=== PATIENT | male | born 1965 | race African-American/Black ===

== ENCOUNTER 2024-09-25 11:42 | Emergency (ER) | payer BC, SELFPAY ==
--- OUTSIDE RECORDS SUMMARY | 2024-09-25 11:44 | XMS_ITS | Encounter Summary ---
Author Organization [facility] [employer] [facility] Address [address] [place] [address] Phone Care Team Providers Care Brake Engineer Name Role Phone Lisa Alanis NP Primary Care Provi carl Chris Hernandez MD Primary Care Provider [phone] Clemente Harding MD Primary Care Provider + Svitlana Yee MD Primary Care Provider Encounter Details Date Type Department Care Team (Latest Contact Info) Description 03/08/2019 Orders Only [facility] Scanning, Provider Social History Tobacco Use Types Packs/Day Years Used Date Smoking Tobacco: Never Assessed Sex and Gender Information Value Date Recorded Sex Assigned at Not on file Legal Sex Male 10:55 PM IRONER OR PRESSER Gender Identity Male 12/19/2020 2:54 PM CDT Sexual Orientation Not on file documented as of this encounter Plan of Treatment Scheduled Procedures Name Priority Associated Diagnoses Date/Ti me COLONOSCOPY Colon cancer screening documented as of this encounter Procedures Procedure Name Priority Date/Time Associated Diagnosis Comments GI - RESULT 03/08/2019 documented in this encounter Results * GI - RESULT (03/08/2019) Anatomical Region Laterality Modality Other us Provider Scanning Final Result documented in this encounter Visit Diagnoses Not on filedocumented in this encounter Care Teams Brake Engineer Relationship Specialty Start Date End Date Lisa Alanis NP PCP - General Nurse Practitioner 02/15/19 04/13/20 Chris Hernandez MD [address] [place] [address] PCP - General 04/14/20 12/20/20 Clemente Harding MD [address] [place] [address] PCP - General Internal Medicine 12/21/20 01/23/23 Svitlana Yee MD [address] [place], [place] [id number] PCP - General Internal Medicine 01/24/23 documented as of this encounter
--- OUTSIDE RECORDS SUMMARY | 2024-09-25 11:44 | XMS_ITS | Clinical Summary ---
Author Organization [facility] Office [facility] Address [address] [place] [address] Care Team Providers Care Solid Waste Disposal Manager Name Role Phone Svitlana Yee MD Primary Care Provider Allergies Active Allergy Reactions Criticality Noted Date Comments Lisinopril Angioedema,Other (Se e comments),Swollen tongue High 04/14/2020 Swelling Lisinopril-Hydrochloro thiazide Angioedema High 08/07/2020 Mouth swelling, coughing, Medications [id number] [id number] in (Centrum Silver Men) 300-600-300 mcg tablet qd Active inhalational spacing device (Aerochamber Plus Flow-Vu) spacer Inhale 1 Device as needed (breathing treatment) 1 each 1 Active aspirin 81 mg enteric coated tablet Take 1 tablet (81 mg total) by mouth daily 90 tablet 3 1 Active Additional Information Patient not taking.Reported on 03/12/2024 cholecalcifero l (VITAMIN D-3) 5,000 unit capsule Take 1 capsule (5,000 Units total) by mouth daily 90 capsule 3 1 Active fexofenadine (ABA) 180 mg tablet Take 1 tablet (180 mg total) by mouth daily as needed (allergies) 90 tablet 4 3 Active Additional Information Patient not taking.Reported on 03/12/2024 albuterol HFA (ProAir HFA) 90 mcg/actuation inhaler Inhale 2 puffs every 4 (four) hours as needed for wheezing or shortness of breath 8.5 g 1 4 Active fluticasone-um eclidin-vilant er (Trelegy Ellipta) 100-62.5-25 mcg inhaler Inhale 1 puff daily 30 each 1 4 03/29/20 25 Active semaglutide (RYBELSUS) 3 mg tablet Take 1 tablet (3 mg total) by mouth facility planner before breakfast 90 tablet 1 4 Active amLODIPine (NORVASC) 10 mg tablet Take 1 tablet (10 mg total) by mouth daily 90 tablet 5 Active metFORMIN (GLUCOPHAGE) 1,000 mg tablet Take 1 tablet (1,000 mg total) by mouth 2 (two) times a day with meals 180 tablet 5 Active sildenafiL (VIAGRA) 100 mg tablet Take 1 tablet (100 mg total) by mouth as needed for erectile dysfunction (Daily for erectile dysfuction) 30 tablet 2 5 Active rosuvastatin (CRESTOR) 10 mg tablet Take 1 tablet (10 mg total) by mouth daily 90 tablet 1 5 Active rosuvastatin (CRESTOR) 10 mg tablet Take 1 tablet (10 mg total) by mouth daily 90 tablet 2 5 09/01/19 25 Discontin ued(Reord er) metFORMIN (GLUCOPHAGE) 1,000 mg tablet Take 1 tablet (1,000 mg total) by mouth 2 (two) times a day with meals 180 tablet 5 09/01/19 25 Discontin ued(Reord er) amLODIPine (NORVASC) 10 mg tablet Take 1 tablet (10 mg total) by mouth daily 90 tablet 5 09/01/19 25 Discontin ued(Reord er) rosuvastatin (CRESTOR) 10 mg tablet Take 1 tablet (10 mg total) by mouth daily 90 tablet 1 5 09/01/19 25 Discontin ued(Reord er) Active Problems Problem Noted Date Diagnosed Date Acute dehydration 12/04/2023 Microscopic hematuria 09/25/2022 Overview (09/25/2022): Repeat UA at next visit, if RBCs persist then plan for imaging and Urology referral for consideration of cystoscopy. Nocturia 09/09/2022 Overview (09/09/2022): Appears most consistent with LUTS. We discussed pathophysiology of BPH and reviewed diagrams explaining it. PSA WNL. Counseled on lifestyle (decreasing nocturnal fluids) and starting tamsulosin. He wants to try both treatments. Seasonal allergies 03/11/2022 Overview (03/11/2022): Incomplete relief with OTC medications including intranasal spray and PO options. Using chlorpheniramine from employer. Referral to Allergy to identify source and possible desensitization therapy. Pre-op evaluation 12/19/2021 Overview (03/11/2022): For right knee arthroscopic repair meniscus. RCRI score zero, correlating with predicted perioperative 30-day risk of , cardiac arrest, or myocardial infarction of 3.9%. Discussed this with patient today, 03/11/2022. and he demonstrated understanding. No risk factors to further optimize to lower this risk. At this time benefit of surgery is likely greater than risks. Instructed to hold home metformin the morning of surgery. Right leg swelling 09/17/2021 Overview (09/17/2021): No trauma, travel, or stasis that increases risk for DVT. No prior VTE. Suspect this is actually hernández's cyst or related to knee rather than vascular issues. US to evaluate. Mixed diabetic hyperlipidemi a associated with type 2 diabetes mellitus 09/14/2021 Overview (12/19/2021): Continue rosuvastatin 10 Tubular adenoma of colon 04/16/2021 Overview (12/19/2021): Records request from Dr.Vasantha Boudreaux in [place], [place]; if Caleb needs another colonoscopy he is okay with getting it CKD stage G2/A2, GFR 60-89 a nd albumin creatinine ratio 30-299 mg/g 04/14/2021 Overview (04/16/2021): Counseling on ARB vs. SGLT2 inhibitor, ongoing glycemic control Erectile dysfunction 12/21/2020 Overview (03/11/2022): Has AM erections. Also has DM and HLD. Suspect mix of vascular disease and psychogenic. Incomplete benefit with sildenafil or tadalafil and has side effects. Urology referral for evaluation for intracavernosal injections. Vasovagal syncope 04/13/2020 COVID-19 04/13/2020 Vitamin B12 deficiency (non anemic) 12/02/2018 Overview (12/04/2023): Replete Diabetes mellitus 01/23/2017 Overview (12/04/2023): A1c above goal at 8.0%. Managed with lifestyle, metformin 1000 BID. Previously thought SGLT2 increased urination however he continues to have this symptom off the medication. We spent extensive time discussing mechanism of GLP1 and GIP. He understands most likely side effect is nausea at approximately 20%. Other GI side effects including vomiting, diarrhea, constipation, pancreatitis can occur. At this time he would like to work on lifestyle more instead of adding GLP/GIP however he feels more comfortable with idea of these medications now. - foot exam WNL Dec 2021 - normal urine albumin Dec 2021; prior angioedema with lisinopril - follows with Ophtho, last exam Dec 2021 Hypertensive disorder 01/23/2017 Overview (12/04/2023): At goal. Continue amlodipine. Phimosis 10/07/2011 Overview (08/15/2017): Description: s/p circumcision 09/02/2011 Resolved Problems Problem Noted Date Diagnosed Date Resolved Date Transaminitis 12/21/2020 12/19/2021 Overview (12/21/2020): Now resolved but seen on prior. HCV and HBV negative. Minimal EtOH. Suspect VELASQUEZ with DM and hyperlipidemia. Plan for lifestyle modification and RUQ US in future Immunizations Immunization Administration Dates Next Due Influenza, Trivalent, IM (MDV) 02/02/2014 Pneumococcal Conjugate Pcv20 03/11/2022 Pneumococcal Polysaccharide PPV23 04/18/2020 Tdap 09/09/2022 ZOSTER Recombinant 04/18/2020 Surgical History Surgery Date Site/Laterality Comments SHOULDER SURGERY Shoulder Surgery - (Added by TW Conv) CIRCUMCISION, PRIMARY Circumcision No Clamp/Device/Dorsal Slit Older Than 28 Days - 09/02/2011 (Added by TW Conv) SHOULDER SURGERY Bilateral WRIST SURGERY Bilateral THUMB SURGERY Left ELBOW SURGERY Bilateral Medical History Medical History Date Comments Personal history of other en docrine, nutritional and metabolic disease History of diabetes mellitus - (Added by TW Conv) Personal history of other di seases of the circulatory system History of hypertension - (A dded by TW Conv) Encounter for counseling Encount er for consultation - for circumcision (Added by TW Conv) Family History Medical History Relation Name Comments Cancer Father Diabetes Father Heart attack Maternal Grandmother Relation Name Status Comments Father Maternal Grandmother Social History Tobacco Use Types Packs/Day Years Used Date Smoking Tobacco: Never Smokeless Tobacco: Never Tobacco Cessation:Counseling Given: Not Answered AUDIT-C Answer Date Recorded Q1: How often do you have a drink containing alc ohol? Monthly or less 12/21/2020 Average Number of Drinks Not on file 021 Frequency of Binge Drinking Not on file 12/03 PHQ-2 Answer Date Recorded PHQ-2 Total Score (If total score is 3 or more points, staff should administer the PHQ-9) 0 03/13/2023 Sex and Gender Information Value Date Recorded Sex Assigned at Not on file Legal Sex Male 10:55 PM SNOWBOARD DESIGNER Gender Identity Male 12/19/2020 2:54 PM CDT Sexual Orientation Not on file Obstetrics History Last Filed Vital Signs Vital Sign Reading Time Taken Comments Blood Pressure 131/84 03/12/2024 10:44 AM SNOWBOARD DESIGNER Pulse 86 03/12/2024 10:44 AM SNOWBOARD DESIGNER Temperature 36.7 C (98 F) 03/12/2024 10:44 AM SNOWBOARD DESIGNER Respiratory Rate - - Oxygen Saturation 97% 03/13/2023 10:54 AM SNOWBOARD DESIGNER Inhaled Oxygen Concentration - - Weight 108 kg (238 lb) 03/12/2024 10:44 AM SNOWBOARD DESIGNER Height 186.7 cm (6' 1.5 ) 03/12/2024 10:44 AM CS T Body Mass Index 30.97 03/12/2024 10:44 AM SNOWBOARD DESIGNER Plan of Treatment Scheduled Procedures Name Priority Associated Diagnoses Date/Ti me COLONOSCOPY Colon cancer screening Health Maintenance Due Date Last Done Comments Zoster Vaccine (2 of 2) 06/13/2020 04/18/2020 Foot Exam 12/19/2022 12/19/2021, 12/21/2020 Regular Well Visit/Exam 18-64 03/11/2023 03/11/2022, 12/21/2020 Colon Cancer Screening-Colonoscopy 03/08/2024 Albumin Creatinine Ratio, Urine 03/13/2024 03/13/2023, 12/19/2021, 12/21/2020 Depression Screening 03/13/2024 03/13/2023, 04/16/20 21 Dilated Eye Exam 06/05/2024 06/05/2023, 05/2021, 05/05/2020 Hemoglobin A1C 09/09/2024 03/12/2024, 0805/2023, 03/13/2023, Additional history exists Influenza Vaccine (Season Ended) 2025 03/13/20 23, 02/02/2014 Lipid Panel 03/12/2025 03/12/2024, 110 01/2023, 12/19/2021, Additional history exists eGFR 03/12/2025 03/12/2024, 0805/2023, 03/13/2023, Additional history exists Prostate Cancer Screening-PSA 03/12/2026 03/12/2024, 03/11/2022 DTaP/Tdap/Td Vaccine (2 - Td or Tdap) 09/09/2032 09/09/2022 Hepatitis C Screening Completed 12/21/2020 Pneumococcal vaccine <65 Completed 03/11/2022, 04/04 Hepatitis B Screening Completed 12/04/2023 Procedures Procedure Name Priority Date/Time Associated Diagnosis Comments EGFR Routine 03/12/2024 11:33 AM SNOWBOARD DESIGNER Controlled diabetes mellitus type 2 with complications, unspecified whether termite control technician insulin use (HCC) HEMOGLOBIN A1C Routine 03/12/2024 11:33 AM SNOWBOARD DESIGNER Controlled diabetes mellitus type 2 with complications, unspecified whether nursing home insulin use (HCC) LIPID PANEL Routine 03/12/2024 11:33 AM SNOWBOARD DESIGNER Controlled diabetes mellitus type 2 with complications, unspecified whether termite control technician insulin use (HCC) PSA SCREEN Routine 03/12/2024 11:33 AM SNOWBOARD DESIGNER Health care maintenance ALBUMIN CREATININE RATIO, URINE Routine 03/13/2023 12:20 PM SNOWBOARD DESIGNER Hypertension associated with diabetes (HCC) HEPATITIS C ANTIBODY Routine 12/21/2020 2:15 PM CDT Need for hepatitis C screening test from Last 3 Months or Most Recently Relevant to Health Maintenance Results * eGFR (03/12/2024 11:33 AM SNOWBOARD DESIGNER) eGFR >90 >=60 mL/min/1. 73 m2 Comment: Interpretive Data Reference Interval Normal >/= 90 mL/min/1.73m2 Mildly decreased* 60 - 89 mL/min/1.73m2 Mildly to moderately decreased 45 - 59 mL/min/1.73m2 Moderately to severely decreased 30 - 44 mL/min/1.73m2 Severely decreased 15 - 29 mL/min/1.73m2 Kidney Failure < 15 mL/min/1.73m2 *Relative to young adult level Estimated glomerular filtration rate is determined by the 2020 CKD-EPI equation recommended by the National Kidney Foundation (A Unifying Approach to GFR Estimation: Recommendations of the NKF-ASK Task Force on Reassessing the Inclusion of Race in Diagnosing Kidney Disease, JASN 202). The CKD-EPI equation should not be used for patients with unstable renal function and has not been validated in children and those over 70. Current interpretive data was last reviewed 2021. Blood 03/12/2024 11:3 3 AM SNOWBOARD DESIGNER 03/12/2024 11:53 AM SNOWBOARD DESIGNER us Svitlana Yee MD LAB BLOOD ORDERABLES F inal Result [facility] [place] [address] * PSA screen (03/12/2024 11:33 AM SNOWBOARD DESIGNER) PSA-Total 0.44 <=3.90 ng/mL Comment: Interpretive Data AGE SEX REFERENCE INTERVAL 0 minutes-150 years Female None 0 minutes-49 years Male None 50-59 years Male 0-3.90 60-69 years Male 0-5.40 70-79 years Male 0-6.20 80-150 years Male 0-6.20 The Jered PSA Total assay procedure was used. Results from different manufacturers or methods may not be comparable. Serial testing should be performed using the same method. Current interpretive data last revised 21. Blood 03/12/2024 11:3 3 AM SNOWBOARD DESIGNER 03/12/2024 11:53 AM SNOWBOARD DESIGNER Svitlana Yee MD LAB BLOOD ORDERABLES F inal Result Performing Organization Address [facility] Co de Phone Number [facility] [place] [address] * (ABNORMAL) Hemoglobin A1c (03/12/2024 11:33 AM SNOWBOARD DESIGNER) [facility] Hgb A1C 8.4(H) 4.0 - 5.6 % Estimated Average Glucose 194 mg/dL [facility] Comment: The ADA recommends reporting an estimated Average Glucose (eAG) with all Hemoglobin A1c results using the equation derived from a study of 507 normal and diabetic adults. Minority populations were underrepresented and children were not included. (Diabetes Care 2020; 43(S1): S66-S76). The eAG is not equivalent to a fasting glucose. Blood 03/12/2024 11:3 3 AM SNOWBOARD DESIGNER 03/12/2024 11:54 AM SNOWBOARD DESIGNER Svitlana Yee MD LAB BLOOD ORDERABLES F inal Result Performing Organization Address City/[facility]/ZIP Co de Phone Number [facility] [place] [address] * Lipid panel (03/12/2024 11:33 AM SNOWBOARD DESIGNER) Pathologist [facility] Cholesterol 127 30 - 199 mg/dL Comment: Interpretive Data Ages < or = 19 years Acceptable: <170 mg/dL Borderline high: 170-199 mg/dL High: >or= 200 mg/dL Ages > or = 20 years Desirable: <200 mg/dL Borderline high: 200-239 mg/dL High: >or= 240 mg/dL Literature References: 1. Expert Panel on Integrated Guidelines for Cardiovascular Health and Risk Reduction in Children and Adolescents. Pediatrics 2011;128:S213 2. NCEP Expert Panel. Circulation 2004;110:227 Current Interpretive Data was last revised on 2017. Triglycerides 76 <=149 mg/dL [facility] Comment: Interpretive Data Ages < or = 9 years Acceptable: <75 mg/dL Borderline high: 75-99 mg/dL High: >or= 100 mg/dL Ages 10 to 20 years Acceptable: <90 mg/dL Borderline high: 90-129 mg/dL High: >or= 130 mg/dL Ages > or = 20 years Desirable: <150 mg/dL Borderline high: 150-199 mg/dL High: 200-499 mg/dL Very high: >or= 499 mg/dL Literature References: 1. Expert Panel on Integrated Guidelines for Cardiovascular Health and Risk Reduction in Children and Adolescents. Pediatrics 2011;128:S213 2. NCEP Expert Panel. Circulation 2004;110:227 Current Interpretive Data was last revised on 2017. HDL 40 >=40 mg/dL [facility] Comment: Interpretive Data Ages < or = 19 years Acceptable: >45 mg/dL Borderline low: 40-45 mg/dL Low: <40 mg/dL Ages > or = 20 years Desirable: >or= 60 mg/dL Low: <40 mg/dL Literature References: 1. Expert Panel on Integrated Guidelines for Cardiovascular Health and Risk Reduction in Children and Adolescents. Pediatrics 2011;128:S213 2. NCEP Expert Panel. Circulation 2004;110:227 Current Interpretive Data was last revised on 2017. LDL, calculated 72 <=129 mg/dL [facility] Comment: Interpretive Data Ages < or = 19 years Acceptable: <110 mg/dL Borderline high: 110-129 mg/dL High: >or= 130 mg/dL Ages > or = 20 years Optimal: <100 mg/dL Near optimal: 100-129 mg/dL Borderline high: 130-159 mg/dL High: >160 mg/dL Calculated using the Buddy LDL-C estimating equation. This equation was implemented on 2023. Prior to this date LDL-C was estimated using the Friedewald equation. Literature References: 1. Expert Panel on Integrated Guidelines for Cardiovascular Health and Risk Reduction in Children and Adolescents. Pediatrics 2011;128:S213 2. NCEP Expert Panel. Circulation 2004;110:227 3. Buddy Solano et al. BRIDGETTE Cardiol. 2019September 02;5(5):540-548. doi: 10.1001/jamacardio.2020.0013 Current Interpretive Data was last revised on 2023. Non-HDL Cholesterol 87 mg/dL [facility] Comment: Interpretive Data Ages < or = 19 years Acceptable: <120 mg/dL Borderline high: 120-144 mg/dL High: >145 mg/dL Ages > or = 20 years When triglycerides are >200 mg/dL, Non-HDL cholesterol is a secondary target of therapy with treatment goals that are 30 mg/dL greater than the LDL cholesterol target. Literature References: 1. Expert Panel on Integrated Guidelines for Cardiovascular Health and Risk Reduction in Children and Adolescents. Pediatrics 2011;128:S213 2. NCEP Expert Panel. Circulation 2004;110:227 Current Interpretive Data was last revised on 2017. Chol/HDL ratio 3 [facility] Blood 03/12/2024 11:3 3 AM SNOWBOARD DESIGNER 03/12/2024 11:53 AM SNOWBOARD DESIGNER Svitlana Yee MD LAB BLOOD ORDERABLES F inal Result [facility] [place] [address] * (ABNORMAL) Albumin Creatinine Ratio, Urine (03/13/2023 12:20 PM SNOWBOARD DESIGNER) Albumin Ur 856.0 mg/L [facility] Comment: Interpretive Data No reference range established. Current interpretive data was last revised 2018. Creatinine Ur 307.3 mg/dL [facility] Comment: Interpretive Data No reference range established. Current interpretive data was last revised 2018. Albumin Creatinine Ratio, Ur 279(H) 1 - 29 mg/g [facility] Urine 03/13/2023 12:2 0 PM SNOWBOARD DESIGNER 03/13/2023 12:56 PM SNOWBOARD DESIGNER Svitlana Yee MD LAB URINE ORDERABLES F inal Result Performing Organization Address City/[facility]/ZIP Co de Phone Number [facility] [place] [address] * Hepatitis C antibody (12/21/2020 2:15 PM CDT) Hep C Ab Nonreactive Nonreactive [facility] Comment: Interpretive Data Nonreactive: Antibodies to HCV not detected. Does NOT exclude the possibility of recent exposure to HCV. Equivocal: Equivocal for HCV antibodies. Supplemental molecular testing will be automatically performed to determine infection status in accordance with current CDC screening recommendations. Reactive: Positive for HCV antibodies. This may represent current or past HCV infection. Supplemental molecular testing will be automatically performed to determine current infection status in accordance with current CDC screening recommendations. Interpretive data was last revised on 2019. Testing performed by: [facility], [facility] [facility], [place]., [address] Blood 12/21/2020 2:15 PM CDT 12/21/2020 6:04 PM CDT Clemente Harding MD LAB MICROBIOLOGY - GENER AL ORDERABLES Final Result Performing Organization Address City/[facility] Co de Phone Number [facility] [address] [facility]. [place] [address] from Last 3 Months or Most Recently Relevant to Health Maintenance Insurance [employer] [facility] BLUE ACCESS CHOICE [place] BLUE [place]ESS CHOICE [place] Care Teams Solid Waste Disposal Manager Relationship Specialty Start Date End Date Svitlana Yee MD PCP - General Internal Medicine 01/24/23
--- OUTSIDE RECORDS SUMMARY | 2024-09-25 11:44 | XMS_ITS | Referral Summary ---
Author Organization [facility] at the [facility] Address [address] [place] [address] Care Team Providers Care Manager Ecommerce Name Role Phone Svitlana Yee MD Primary Care Provider Allergies Active Allergy Reactions Criticality Noted Date Comments Lisinopril Angioedema,Other (Se e comments),Swollen tongue High 04/14/2020 Swelling Lisinopril-Hydrochloro thiazide Angioedema High 08/07/2020 Mouth swelling, coughing, Medications [id number] A-ufjsavz-llvy in (Centrum Silver Men) 300-600-300 mcg tablet [...] 1 tablet (3 mg total) by mouth loan administrator before breakfast 90 tablet 1 4 Active [...] (12/19/2021): Records request from Dr.Vasantha Boudreaux in [place], [place]; if Caleb needs another colonoscopy he [...] PPV23 04/18/2020 Tdap 09/09/2022 ZOSTER Recombinant 04/18/2020 Social History Tobacco Use Types Packs/Day Years [...] on file Legal Sex Male 10:55 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 Gender Identity Male 12/19/2020 2:54 PM CDT Sexual Orientation Not on file Last Filed Vital Signs Vital Sign Reading Time Taken Comments Blood Pressure 131/84 03/12/2024 10:44 AM CAMPUS RECEPTIONIST Pulse 86 03/12/2024 10:44 AM CAMPUS RECEPTIONIST Temperature 36.7 C (98 F) 03/12/2024 10:44 AM CAMPUS RECEPTIONIST Respiratory Rate - - Oxygen Saturation 97% 03/13/2023 10:54 AM CAMPUS RECEPTIONIST Inhaled Oxygen Concentration - - Weight 108 kg (238 lb) 03/12/2024 10:44 AM CAMPUS RECEPTIONIST Height 186.7 cm (6' 1.5 ) 03/12/2024 10:44 AM CS T Body Mass Index 30.97 03/12/2024 10:44 AM CAMPUS RECEPTIONIST Plan of Treatment Scheduled Procedures Name Priority Associated Diagnoses Date/Ti me COLONOSCOPY Colon cancer screening Procedures Procedure Name Priority Date/Time Associated Diagnosis Comments EGFR Routine 03/12/2024 11:33 AM CAMPUS RECEPTIONIST Controlled diabetes mellitus type 2 with complications, unspecified whether group home insulin use (HCC) HEMOGLOBIN A1C Routine 03/12/2024 11:33 AM CAMPUS RECEPTIONIST Controlled diabetes mellitus type 2 with complications, unspecified whether group home insulin use (HCC) LIPID PANEL Routine 03/12/2024 11:33 AM CAMPUS RECEPTIONIST Controlled diabetes mellitus type 2 with complications, unspecified whether continuous churn buttermaker insulin use (HCC) PSA SCREEN Routine 03/12/2024 11:33 AM CAMPUS RECEPTIONIST Health care maintenance ALBUMIN CREATININE RATIO, URINE Routine 03/13/2023 12:20 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 Hypertension associated with diabetes (HCC) HEPATITIS C ANTIBODY Routine 12/21/2020 2:15 PM CDT Need for hepatitis C screening test from Last 3 Months or Most Recently Relevant to Health Maintenance Results * eGFR (03/12/2024 11:33 AM CAMPUS RECEPTIONIST) eGFR >90 >=60 mL/min/1. 73 m2 Comment: [...] of Race in Diagnosing Kidney Disease, JASN 2020). The CKD-EPI equation should not be used for patients with unstable renal function and has not been validated in children and those over 70. Current interpretive data was last reviewed 2021. Blood 03/12/2024 11:3 3 AM CAMPUS RECEPTIONIST 03/12/2024 11:53 AM CAMPUS RECEPTIONIST us Svitlana Yee MD LAB BLOOD ORDERABLES F inal Result [facility] [place] [address] * PSA screen (03/12/2024 11:33 AM CAMPUS RECEPTIONIST) PSA-Total 0.44 <=3.90 ng/mL Comment: Interpretive Data [...] revised 21. Blood 03/12/2024 11:3 3 AM CAMPUS RECEPTIONIST 03/12/2024 11:53 AM CAMPUS RECEPTIONIST Svitlana Yee MD LAB BLOOD ORDERABLES F inal Result Performing Organization Address [facility] de Phone Number [facility] [place] [address] * (ABNORMAL) Hemoglobin A1c (03/12/2024 11:33 AM CAMPUS RECEPTIONIST) Hgb A1C 8.4(H) 4.0 - 5.6 % Estimated Average Glucose 194 mg/dL [facility] Comment: The ADA recommends reporting an estimated Average Glucose (eAG) with all Hemoglobin A1c results using the equation derived from a study of 507 normal and diabetic adults. Minority populations were underrepresented and children were not included. (Diabetes Care 2020; 43(S1): S66-S76). The eAG is not equivalent to a fasting glucose. Blood 03/12/2024 11:3 3 AM CAMPUS RECEPTIONIST 03/12/2024 11:54 AM CAMPUS RECEPTIONIST Svitlana Yee MD LAB BLOOD ORDERABLES F inal Result Performing Organization Address [facility] de Phone Number [facility] [place] [address] * Lipid panel (03/12/2024 11:33 AM CAMPUS RECEPTIONIST) Cholesterol 127 30 - 199 mg/dL Comment: [...] revised on 2017. Triglycerides 76 <=149 mg/dL [facility] Comment: Interpretive Data Ages < or [...] revised on 2017. HDL 40 >=40 mg/dL [facility] Comment: Interpretive Data Ages < or [...] on 2017. LDL, calculated 72 <=129 mg/dL [facility] Comment: Interpretive Data Ages < or = 19 years Acceptable: <110 mg/dL Borderline high: 110-129 mg/dL High: >or= 130 mg/dL Ages > or = 20 years Optimal: <100 mg/dL Near optimal: 100-129 mg/dL Borderline high: 130-159 mg/dL High: >160 mg/dL Calculated using the Goodwin LDL-C estimating equation. This equation was implemented on 2023. Prior to this date LDL-C was estimated using the Friedewald equation. Literature References: 1. Expert Panel on Integrated Guidelines for Cardiovascular Health and Risk Reduction in Children and Adolescents. Pediatrics 2011;128:S213 2. NCEP Expert Panel. Circulation 2004;110:227 3. Buddy Solano et al. BRIDGTETE Cardiol. 2019September 02;5(5):540-548. doi: 10.1001/jamacardio.2020.0013 Current Interpretive Data was last revised on 2023. Non-HDL Cholesterol 87 mg/dL [facility] Comment: Interpretive Data Ages < or [...] last revised on 2017. Chol/HDL ratio 3 [facility] Blood 03/12/2024 11:3 3 AM CAMPUS RECEPTIONIST 03/12/2024 11:53 AM CAMPUS RECEPTIONIST us Svitlana Yee MD LAB BLOOD ORDERABLES F inal Result [facility] Department [place] [address] * (ABNORMAL) Albumin Creatinine Ratio, Urine (03/13/2023 12:20 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) Albumin Ur 856.0 mg/L [facility] Comment: Interpretive Data No reference range established. Current interpretive data was last revised 2018. Creatinine Ur 307.3 mg/dL [facility] Comment: Interpretive Data No reference range established. Current interpretive data was last revised 2018. Albumin Creatinine Ratio, Ur 279(H) 1 - 29 mg/g [facility] Urine 03/13/2023 12:2 0 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 03/13/2023 12:56 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 Svitlana Yee MD LAB URINE ORDERABLES F inal Result [facility] Department [place] [address] * Hepatitis C antibody (12/21/2020 2:15 PM CDT) Hep C Ab Nonreactive Nonreactive [facility] Comment: Interpretive Data Nonreactive: Antibodies to HCV [...] last revised on 2019. Testing performed by: [facility], [address] [place] [address]., [id number] Blood 12/21/2020 2:15 PM CDT 12/21/2020 6:04 PM CDT Clemente Harding MD LAB MICROBIOLOGY - GENER AL ORDERABLES Final Result Performing Organization Address City/[facility] Co de Phone Number [facility] [address] [facility]. Department [place] [address] from Last 3 Months or Most Recently Relevant to Health Maintenance Insurance [employer] [facility] [employer] ACCESS CHOICE [place] [employer] [place] Care Teams Manager Ecommerce Relationship Specialty Start Date End Date Svitlana Yee MD PCP - General Internal Medicine 01/24/23
--- OUTSIDE RECORDS SUMMARY | 2024-09-25 11:44 | XMS_ITS | Clinical Summary ---
Author Organization [facility] Address [address] [place] [address] Care Team Providers Care Teletypesetter Monitor Name Role Phone Chris Hernandez MD Primary Care Provider [phone] Source Comments [facility],non-owned Affiliates and Associated Physician Practices is amultiple site organization consisting of ambulatory clinics and hospital sitesin [place], [place], [place] and [place]. This disclosure is being madepursuant to the Care Everywhere program and may not contain all information available regarding this patient. Last updated 18.[facility] Allergies Active Allergy Reactions Criticality Noted Date Comments Lisinopril-Hydrochlorothi azide Angioedema High 08/07/2020 Mouth swelling, coughing, Medications * Be aware that medications may not be up to date on this document. Alwaysverify current medications with the patient. traMADol (ULTRAM) 50 MG tablet Take 50 mg by mouth every 6 hours as needed 02/02/20 20 Active tadalafil (CIALIS) 20 MG tablet tadalafil 20 mg tablet TAKE 1 TABLET BY MOUTH ONCE DAILY NEEDED Active sildenafil (REVATIO) 20 MG tablet sildenafil (pulmonary hypertension) 20 mg tablet TK 2-3 TS ONCE D PRN ONLY Active rosuvastatin (CRESTOR) 10 MG tablet 07/21/19 21 Active pravastatin (PRAVACHOL) 40 MG tablet 04/24/20 20 Active oseltamivir (TAMIFLU) 75 MG capsule oseltamivir 75 mg capsule Active metFORMIN ER 24hr (GLUCOPHAGE XR) 500 MG tablet 09/10/19 20 Active HYDROcodone-barney taminophen (NORCO) 5-325 MG tablet Take 1 tablet by mouth every 6 hours as needed pain 12/06/19 20 Active glyBURIDE (DIABETA; MICRONASE) 5 MG tablet Take 5 mg by mouth once daily 02/07/20 20 Active fluconazole (DIFLUCAN) 200 MG tablet 12/06/19 20 Active XIGDUO XR 5-1000 MG tablet 10/17/19 20 Active vitamin D3 (CHOLECALCIFERO L) 125 MCG (5000 UT) capsule cholecalciferol (vitamin D3) 125 mcg (5,000 unit) capsule Take 1 capsule(s) every day by oral route. Active azithromycin (ZITHROMAX) 250 MG tablet TAKE 2 TABLETS BY MOUTH ON DAY 1 AND THEN TAKE 1 TABLET BY MOUTH ONCE A DAY ON DAY 2 THROUGH DAY 5 08/04/19 21 Active ASPIRIN LOW DOSE 81 MG tablet 07/21/19 21 Active amLODIPine (NORVASC) 5 MG tablet 12/07/19 20 Active albuterol HFA (PROVENTIL;VENT TATUM;PROAIR) 108 (90 Base) MCG/ACT inhaler albuterol sulfate HFA 90 mcg/actuation aerosol inhaler 2 puffs up to 4 times a days as needed only; Must go to the Emergency Room if no relief after the 4th treatment. Active cetirizine (ZYRTEC) 10 MG tabletIndicatio ns:Sarcoidosis, Persistent asthma without complication, unspecified asthma severity (HCC),Seasonal allergic rhinitis, unspecified trigger Take 1 (one) tablet by mouth once daily 90 tablet 4 08/08/19 21 Active fluticasone propionate (FLONASE) 50 MCG/ACT nasal sprayIndication s:Sarcoidosis,P ersistent asthma without complication, unspecified asthma severity (HCC),Seasonal allergic rhinitis, unspecified trigger [place] 2 (two) sprays into each nostril once daily 16 g 08/08/19 21 Active fluticasone-zahra meterol hfa (ADVAIR HFA) 230-21 MCG/ACTIndicati ons:Sarcoidosis ,Persistent asthma without complication, unspecified asthma severity (HCC) Inhale 2 (two) puffs by mouth 2 times daily 3 Inhaler 3 08/08/19 21 Active Social History Tobacco Use Types Packs/Day Years Used Date Smoking Tobacco: Never Smokeless Tobacco: Never Sex and Gender Information Value Date Recorded Sex Assigned at Not on file 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 Gender Identity Not on file Sexual Orientation Not on file Last Filed Vital Signs Vital Sign Reading Time Taken Comments Blood Pressure 130/87 08/07/2020 2:34 PM CDT Pulse 104 08/07/2020 2:34 PM CDT Temperature 36 C (96.8 F) 08/07/2020 2:34 PM CDT Respiratory Rate 16 08/07/2020 2:34 PM CDT Oxygen Saturation 93% 08/07/2020 2:34 PM CDT Inhaled Oxygen Concentration - - Weight 109.1 kg (240 lb 8 oz) 08/07/2020 2:34 PM CDT Height 186.7 cm (6' 1.5 ) 08/07/2020 2:34 PM CDT Body Mass Index 31.3 08/07/2020 2:34 PM CDT Plan of Treatment Health Maintenance Due Date Last Done Comments COLOGUARD (AGES 45-75) - COL ON CA SCREENING 1967 COLON MONITORING 1967 COLONOSCOPY - COLON CA SCREENING 1967 CT COLONOGRAPHY - COLON CA SCREENING 1967 Colorectal Cancer Screening 1967 FIT - COLON CA SCREENING 1967 FLEX SIG - COLON CA SCREENING 1967 HIV SCREENING 1982 HEPATITIS C SCREENING 04/10/1985 DTAP/TDAP/TD VACCINES (1 - Tdap) 1986 HEPATITIS B VACCINE (1 of 3 - 19+ 3-dose series) 1986 PNEUMOCOCCAL VACCINE 50+ (1 of 1 - PCV) 2017 ZOSTER VACCINE (1 of 2) 2017 SCREENING FOR DIABETES 08/07/2020 9, 12/29/2008 COVID-19 VACCINE (1 - 2023-2 5 season) 2024 DEPRESSION SCREENING 05/05/2024 INFLUENZA VACCINE (Season Ended) 2025 HIB VACCINE Aged Out No longer eligi ble based on patient's age to complete this topic HPV VACCINE Aged Out No longer eligi ble based on patient's age to complete this topic MENINGOCOCCAL (Group B) VACCINE SHARED DECISION-MAKING Aged Out No longer eligible based on patient's age to complete this topic MENINGOCOCCAL GROUPS A/C/Y/W VACCINE Aged Out No longer eligible b ased on patient's age to complete this topic Procedures Procedure Name Priority Date/Time Associated Diagnosis Comments COMPREHENSIVE METABOLIC PANEL Routine 12/29/2008 12:55 PM CDT Mixed Hyperlipidemia from Last 3 Months or Most Recently Relevant to Health Maintenance Results * (ABNORMAL) COMPREHENSIVE METABOLIC PANEL (12/29/2008 12:55 PM CDT) Sodium 141 137 - 145 mmol/L [facility] Potassium 4.0 3.6 - 5.0 mmol/L [facility] Chloride 103 98 - 107 mmol/L [facility] BUN 15 9 - 20 mg/dl [facility] Creatinine 0.93 0.66 - 1.25 mg/dl [facility] Glucose 76 75 - 110 mg/dl [facility] Calcium 9.6 8.4 - 10.2 mg/dl [facility] Alkaline Phosphatase 58 38 - 126 U/L [facility] AST 34 14 - 50 U/L [facility] Bilirubin Total 0.9 0.2 - 1.3 mg/dl [facility] Protein Total 8.5(H) 6.3 - 8.2 gm/dl [facility] Albumin 4.6 3.9 - 5.0 gm/dl [facility] CO2 30 22 - 30 mmol/L [facility] ALT 33 21 - 72 U/L [facility] eGFR by MDRD 108 97 - 137 mL/min/1.7 3m2 [facility] Comment eGFR [facility] Comment: The eGFR does not apply to patients who are younger than 18 or older than 70. BLOOD SPECIMEN / Unknown 12/29/2008 12:55 PM CDT Gloria Lowry MD LAB - CHEMISTRY ORDERAB LES Final Result [facility] [address] [place] [address] from Last 3 Months or Most Recently Relevant to Health Maintenance Insurance ANTHEM ANTHEM Care Teams Teletypesetter Monitor Relationship Specialty Start Date End Date Chris Hernandez MD [address] [place] [address] [address] [place] [id number] PCP - General 08/02/20
--- OUTSIDE RECORDS SUMMARY | 2024-09-25 11:44 | XMS_ITS | Data Portability ---
Author Organization [place] [facility] Address [address] [place] [address] Care Team Providers Care Endband Sizer Name Role Phone REAL CHOI Primary Care Provider Assessment No assessment recorded. Plan of Treatment Reminders Order Date Submit Date Provider Last Modified By Organization Details Last Modified Time Details Appointments None recorded. Lab None recorded. Referral None recorded. Procedures None recorded. Surgeries None recorded. Imaging electrocar diogram 2018 019 merry Not available 9 18:13:06 Medication Orders None recorded. Patient TargetsNo targets recorded. Patient Instructions Encounter Date Encounter Id Patient Instructions Last Modified By Organization Details Last Modified Time 04/05/2019 [id number] high cholesterol : care instructions merry Not available 04/05/2019 18:13:06 Reason for Referral None Reported. Results Created Date Observation Date Name Description Value Unit Range Abnormal Flag Note LastModifiedBy Organization Detail LastModifiedTime 04/05/20 19 04/05/2019 elect anila nguyen am Result EKG (2018): NSR, I degree AV block, NSST change s Not Available Joselito Almeida MD [address], [place], [address], 04/05/2019 17:27:04 04/08/20 19 04/05/2019 gurdeep nguyen am No observ ation record ed. fhearn Not Available 2018 13:22:13 04/30/20 19 04/30/2019 , echoc ardio gram No observ ation record ed. [facility] [address], [place], [address], 05/01/2019 04:24:02 05/03/20 19 04/30/2019 [place], echoc ardio gram No observ ation record ed. hmesto Not Available 2019 12:35:03 05/14/19 20 04/10/2019 tread mill nucle ar stres s test (PROC ) No observ ation record ed. hmesto Not Available 2019 12:36:42 Result Notes None recorded. Problems Name Problem SNOMED Code Status Onset Date Resolution Date Notes Provider Name and Address Organization Details Recorded Time Diabetes mellitus 31135002 Active 2018 hgba1c 6 Vernon yee, [place] - [facility] 17:56:48 Benign hypertensio n 21872956 Active 2018 Libby Rivera null, [place] - [facility] 19:56:41 Hyperlipide jayden 00722013 Active 2018 Lib[place] [facility] 19:56:55 Test for allergens Active 2018 [place] [facility] 19:57:09 Sarcoidosis 34122883 Active 2018 [place], [place] - [facility] 9 17:56:57 Obesity 368161736 Active 2018 Lib[place] [facility] 19:57:23 Reactive airway disease 505663159448 Active 2018 [place] [facility] 19:57:34 Fatigue 29619129 Active 2018 [place] [facility] 19:57:40 Allergic rhinitis 52160251 Active 2018 Lib[place] [facility] 19:57:51 Primary erectile dysfunction 566681022 Active 2018 Lib[place] [facility] 19:58:06 Malignant neoplasm of prostate 282121968 Active 2018 Libbybrie Gamezs null, [place] - [facility] 9 19:58:36 Dyspnea on exertion 35295147 Active 2018 eVrnon Leal [facility] 9 18:10:59 Problem Notes None recorded. Procedures Surgical History Date Name Laterality Status Provider Name and Address Organization Details Recorded Time Carpal tunnel surgery completed [facility] 02/26/2019 16:01:30 Shoulder joint surgery completed [facility] 02/26/2019 16:03:40 Imaging Results None recorded. Procedure Notes None recorded. Medical Equipment None Reported. Allergies Allergen ID Allergen Name Allergen Category Reaction Reaction Severity Criticality Documentation Date Start Date Code Code System Note Provider Name and Address Organization Details Recorded Time 9040 lisinopri l medicatio n facial swelling severe Not available 02/10/2019 13586 RxNorm Libby Rivera [facility] 9 19:58:53 Medications Name Sig Start Date Stop Date Status Note LastModified by Organization Details LastModified Time pravastatin 40 mg tablet active Not Available Not Available Not Available amlodipine 5 mg tablet active Not Available Not Available Not Available aspirin 81 mg tablet,jacquie yed release active Not Available Not Available Not Available hydrocortis one 2.5 % topical cream with perineal applicator active pt. no longer takes 04/05/19 FH Not Available Not Available Not Available amlodipine 10 mg tablet active Not Available Not Available Not Available cephalexin 500 mg capsule active pt. no longer takes 04/05/19 FH Not Available Not Available Not Available metformin 1,000 mg tablet bid active Not Available Not Available Not Available fluticasone propionate 50 mcg/actuati on nasal spray,suspe nsion active Not Available Not Available Not Available metformin ER 500 mg tablet,exte nded release 24 hr active Not Available Not Available Not Available Ventolin HFA 90 mcg/actuati on aerosol inhaler active Not Available Not Available Not Available vitamin G07-diaug acid injection solution Take by injection route. active Not Available Not Available No t Available Vitamin D active Not Available Not Judi ilable Not Available Eclipse Syringe 3 mL 25 gauge x 1 active Not Available Not Available Not Available Multi Vitamin active Not Available Not Available Not Available Vitals Date Recorded Body height Body mass index (BMI) Body weight Heart rate Oxygen saturation Oxygen saturation in Arterial blood by Pulse oximetry Systolic And Diastolic Provider Name and Address Organization Details Last Updated DateTime 9 186.69 cm 33.1 kg/m2 605369. 46 g 94 /min 97 % 97 % 120/80 mm[Hg] Heike Bustosn [facility] 9 17:40:34 Social History Question Answer Notes LastModified by Organizat [employer] Details LastModified Time Tobacco Smoking Status Never Smoker Not Available [facility] 03/07/2020 03:30:42 Marital Status hmesto Informatio n not available 02/26/2019 What Was The Date Of Your Most Recent Tobacco Screening? 02/11/2019 [id number] Information not available 03/07/2020 How Much Tobacco Do You Smoke? No [id number] Information not available 03/07/2020 Sex: Unknown Functional Status Question Answer Note LastModified by Organizat [employer] Details LastModified Time Do you or have you ever used smokeless tobacco? Never used smokeless tobacco [id number] Information not available 03/07/2020 Do you or have you ever used e-cigarettes or vape? Never used electronic cigarettes [id number] Information not available 03/07/2020 Mental Status None recorded. Family History Relationship Description Onset Age of this Age Resolved Age Notes LastModified by Organization Details LastModified Time Father Diabetes mellitus hmesto Not available 2018 16:04:10 Father Neoplasm of liver 65 67 hmesto Not available 2018 16:07:31 Paternal Grandfather Malignant neoplastic disease hmesto Not available 2018 16:05:01 Maternal Grandmother Myocardial infarction 82 82 hmesto Not available 02/26 16:07:46 Maternal Uncle Myocardial infarction hmesto Not available 02/26 16:07:07 Medical History Condition Response Diabetes Y Hyperlipidemia Y Hypertension Y Immunizations Vaccine Type Date Status Note Provider Nam e and Address Organization Details Recorded Time Tdap 8 completed Nelly yee [facility] 02/26/2019 16:08:13 pneumococcal polysaccharide PPV23 8 completed Nelly yee [facility] 02/26/2019 16:08:50 Past Encounters Encounter ID Performer Location Encounter Start Date Encounter Closed Date Diagnosis/Indication Diagnosis SNOMED-CT Code Diagnosis ICD10 Code Diagnosis Note [id number] Vernon Leal MD [facility] OFFICE [address] [place] [address] 04/05/2019 16:42:05 04/05/2019 18:14:06 Benign hypertension 24242965 I10 Patient's blood pressure is well-contr olled on present medical therapy. Patient is tolerating , without difficulty , the current medication s. I have not made changes to the current regimen. Patient is advised to maintain a blood pressure diary. Cont low Na diet. Diabetes mellitus 982469 09 E11.9 managed by PC Dyspnea on exertion 6084 5006 R06.09 Patient presents with VASQUEZ which could be equivalent of anginaGive n the history, exam findings and high cardiac risk factors, I feel additional investigat ion is warranted. I have made arrangemen ts in the near future for an exercise stress nuclear test and an echocardio gram to evaluate for any ischemia or structural heart disease. The procedure was discussed with the patient, and risks, benefits, and alternativ e options were explained. Appropriat e labwork has not been performed recently, therefore I have made arrangemen ts for further testing. I have asked the patient to curtail exercise and activities until our investigat ion is complete. I have made the following adjustment s to the present medical regimen. Hyperlipidemia 47147520 E78.5 Patient's hyperlipid emia is well-contr olled on present medical therapy. Patient is tolerating , without difficulty , the current medication s. I have not made changes to the current regimen. Cont low cholestero l diet. Health Concerns Section Related Observation LastModified by Organization Detai ls LastModified Time None Recorded Concern Status LastModified by Organization Details LastModified Time None Recorded Advance Directives Directive None Recorded Payers Insurance Date Sequence Insurance Name Policy Number Policy Leyva Covered Member ID Leyva Member ID Guarantor Name 06/07/2019 1 [place] [id number] Caleb Lynn [id number] Caleb Lynn Notes Date Note Type Note Provider Name and Address Organization Details Recorded Time 04/05/2019 text/html 04/05/19 CC : VASQUEZ 53 years-old -[place] Male with h/o Type 2 Diabetes mellitus, Hypertension, Hyperlipidemia , Reactive airway disease was referred for cardiac evaluation . pt denies CP but does have VASQUEZ sarcoidosis is going to see [facility] bp runs 12-130/80 stress test 10 yrs ago nl No known history of coronary artery disease. No history of previous myocardial infarction. No history of heart failure. No known valvular heart disease. No known arrhythmia. Patient reports feeling well overall. Patient is active, but is not exercising regularly. No chest pain. No arm pain. No neck pain. No nausea and vomiting. No diaphoresis. No shortness of breath at rest. Dyspnea on exertion reported. No fatigue.No orthopnea. No PND. No leg swelling. No palpitation. No dizziness. No syncope . No pre-syncope. No claudication. No major bleeding events. No side effects from medications. Complete ROS negative except as stated in the HPI and ROS. Results from this visit, or from the past: EKG (04/05/2019): NSR, I degree AV block, NSST changes CBC w/ diff 11-05-201811/05/18 CBC: WBC 4.4, HGB 14.7, HCT 44, PLT 187 CMP, serum or plasma 11-05-2018 11/05/18 CMP: NA 141, K 4.2, CL 100, CO2 28, GLU 115, BUN 13, CR 0.8, AST 24, ALT 30 lipid panel, blood 11-05-201811/05/18 LIPID: TC 146, TR 77, HDL 47, LDL 84 Vernon yee, [place] - [facility] 04/05/2019 18:14:04
--- OUTSIDE RECORDS SUMMARY | 2024-09-25 11:44 | XMS_ITS | Continuity of Care Document ---
Author Organization [facility] Address [address] [place] [address] Phone Care Team Providers Care Salt Grinder Name Role Phone Rebecca Guajardo MD Unavailable Unavailable Allergies, Adverse Reactions, Alerts Substance Reaction Status Criticality lisinopril Active No Information Medications Medication Instructions Dosage Effective Dates (start - stop) Status Comments tramadol 50 mg tablet take 1 tablet by oral route every 6 hours as needed 50 MG - Active tramadol 50 mg tablet take 1 tablet by oral route every 6 hours as needed 50 MG - Active [place] 5 mg-325 mg tablet take 1 tablet by oral route every 6 hours as needed for pain - Active Percocet 5 mg-325 mg tablet take 1-2 tablets by oral route every 6 hours as needed for pain - Active METFORMIN HCL ER (unknown strength) Not Available - Active PRAVASTATIN SODIUM (unknown strength) Not Available - Active ASPIRIN EC (unknown strength) Not Available - Active albuterol sulfate HFA 90 mcg/actuation aerosol inhaler - Active AMLODIPINE BESYLATE (unknown strength) Not Available - Active Procedures Procedure Date OFFICE/OUTPATIENT VISIT EST OFFICE/OUTPATIENT VISIT EST OFFICE/OUTPATIENT VISIT EST OFFICE/OUTPATIENT VISIT EST OFFICE/OUTPATIENT VISIT EST POSTOP FOLLOW-UP VISIT OFFICE/OUTPATIENT VISIT EST POSTOP FOLLOW-UP VISIT RADEX [facility] COMPL MINIMUM 2 VIEWS 020 PARTIAL REMOVAL COLLAR BONE OFFICE/OUTPATIENT VISIT EST MRI ANY JT UXTR C-MATRL MRI ANY JT UXTR C-MATRL RADEX [facility] COMPL MINIMUM 2 VIEWS 020 [facility]EX [facility] COMPL MINIMUM 2 VIEWS OFFICE/OUTPATIENT VISIT NEW Advance Directives Directive Yes / No Effective Date File Name No Information Encounters Encounter Description Practice Location Reason(s) For Visit Diagnoses Date Provider Providers Copied on Encounter OFFICE/OUTPA TIENT VISIT EST [facility], [address], [place], [address], [place] tel:[phone] [facility] S/P arthroscopy of left shoulder 1 Casandra Fernandez. [address], [place], [place], [id number]. tel:[phone] OFFICE/OUTPA TIENT VISIT EST [facility], [address], [place], [address], [place] tel:[phone] [facility] S/P arthroscopy of left shoulder 1 Casandra Fernandez. [address], [place], [place], [id number]. tel:[phone] OFFICE/OUTPA TIENT VISIT EST [facility], [address], [place], [address], [place] tel:[phone] [facility] S/P arthroscopy of left shoulder 0 Casandra Fernandez. [address], [place], [place], [address]. tel:[phone] OFFICE/OUTPA TIENT VISIT EST [facility], [address], [place], [address], [place] tel:[phone] [facility] S/P arthroscopy of left shoulder 0 Casandra Fernandez. [address], [place], [place], [address]. tel:[phone] [facility], [address], [place], [address], [place] tel:[phone] [facility] S/P arthroscopy of left shoulder 0 Casandra Fernandez. [address], [place], [place], [address]. tel:[phone] OFFICE/OUTPA TIENT VISIT EST [facility], [address], [place], [address], [place] tel:[phone] [facility] S/P arthroscopy of left shoulder Jan-2 0 Casandra Fernandez. [address], [place], [place], [id number]. tel:[phone] [facility], [address], [place], [address], [place] tel:[phone] [facility] No Information Jan- 0 Casandra Fernandez. [address], [place], [place], [id number]. tel:[phone] [facility], [address], [place], [address], [place] tel:[phone] [facility] S/P arthroscopy of left shoulder 0 Casandra Fernandez. [address], [place], [place], [address]. tel:[phone] OFFICE/OUTPA TIENT VISIT EST [facility], [address], [place], [address], [place] tel:[phone] [facility] S/P arthroscopy of left shoulder 0 Casandra Fernandez. [address], [place], [place], [address]. tel:[phone] [facility], [address], [place], [address], [place] tel:[phone] [facility] AC joint arthropathyS/P arthroscopy of left shoulder 0 Franky Robert. [address], [place], [place], [address]. tel:[phone] Referring Provider: Chris Hernandez, [address], [place], [address] . tel:[phone] [facility], [address], [address], [place] tel:[phone] [facility] Superior glenoid labrum lesion of left shoulder, init encntr 0 Denise Kearns. [address] [facility], [place], [place], [address]. tel:[phone] OFFICE/OUTPA TIENT VISIT EST [facility], [address], [address], [place] tel:[phone] [facility] AC joint arthropathySup erior glenoid labrum lesion of left shoulder, initial encounterBursi tis of right shoulder - 0 Denise Kearns. [address] [place], [place], [address]. tel:[phone] [facility], [address], [address], [place] tel:[phone] [facility] Pain in left shoulderPain in right shoulder Aug-2 3 0 No Information Referring Provider: Som Walker, [address], [place], [address] . tel:[phone] OFFICE/OUTPA TIENT VISIT NEW [facility], [address], [address], [place] tel:[phone] [facility] Pain in left shoulderPain in right shoulder Aug- 0 Denise Kearns. [address] [place], [place], [address]. tel:[phone] Family History Family Member Type Diagnosis Age At Onset Father Problem Cancer, unknown Payers Payer name Insurance type Covered democrat ID Authoriza tion(s) No Information Social History Type Description Quantity Date Captured Comments Alcohol Use Details No Caffeine Use Details Unknown Tobacco Use Status Current non-smoker Feb-08-20 23 Smoking Status Never smoker Sex Male Chief Complaint And Reason For Visit No Information Reason For Referral Reason For Referral No Information Plan Of Treatment Date Type Action Status Referral Ordered: RADEX [facility] COMPL MINIMUM 2 VIEWS LT ordered Referral Ordered: RADEX [facility] COMPL MINIMUM 2 VIEWS RT shoulder ordered Referral Ordered: RADEX [facility] COMPL MINIMUM 2 VIEWS LT shoulder ordered Referral Ordered: MRI ANY JT UXTR C-MATRL RT shoulder Appointment date/timeframe: 08/26/2019 ordered Referral Ordered: MRI ANY JT UXTR C-MATRL LT shoulder Appointment date/timeframe: 08/26/2019 ordered History Of Present Illness Encounter Date Complaint History Of Prese nt Illness No Information Functional Status Date Functional Assessmen t No Information Instructions Date Instruction Additional Infor samuelion Discussed treatment options Rela david to Superior glenoid labrum lesion of left shoulder, initial encounter Discussed treatment options Rela david to Pain in right shoulder Call for increase in pain Relate d to Pain in right shoulder Assessments Type Assessment Date assessment S/P arthroscopy of left shoulder Patient Care Teams Name Effective Dates (start - stop) Status Members No Information
--- OUTSIDE RECORDS SUMMARY | 2024-09-25 11:45 | XMS_ITS | Clinical Summary ---
Author Organization [facility] Address [address] [place] [address] Care Team Providers Care Epidemiologist Name Role Phone Unavailable Primary Care Provider Unavailabl e Social History Tobacco Use Types Packs/Day Years Used Date Smoking Tobacco: Never Assessed Sex and Gender Information Value Date Recorded Sex Assigned at Not on file Legal Sex Male 1:06 PM [employer] Gender Identity Not on file Sexual Orientation Not on file Plan of Treatment Health Maintenance Due Date Last Done Comments Hepatitis C Virus (HCV) Screening 1967 TdaP Immunization 1967 Hepatitis B Immunization (1 of 3 - 19+ 3-dose series) 1986 Colonoscopy 2012 Colorectal Cancer Screening 2012 Cologuard 2017 Immunochemical Fecal Occult Blood 2017 Pneumococcal Immunization (5 0+ years) (1 of 1 - PCV) 2017 Zoster Immunization (1 of 2) 2017 PSA Discussion 2022 Influenza Immunization (#1) 2024 02/02/2014 SARS-COV-2 Immunization ( season) 2024 Respiratory Syncytial Virus (RSV) Immunization (Adult) (1 - 1-dose 75+ series) 2042 Meningococcal Immunization (ACWY) Aged Out No longer eligible based on patient's age to complete this topic Pneumococcal Immunization Combined Aged Out No longer eligible based on patient's age to complete this topic Rotavirus Immunization Aged Out No lo nger eligible based on patient's age to complete this topic Insurance [employer] on file
--- OUTSIDE RECORDS SUMMARY | 2024-09-25 11:45 | XMS_ITS | Continuity of Care Document ---
Author Organization [employer] Address [address] [place] [address] Phone Care Team Providers Care Neurosurgery Spine Physician Name Role Phone Lucio Martin MD Unavailable Unavailab le Allergies, Adverse Reactions, Alerts Substance Reaction Status Criticality No Known Allergies Active No Inform ation Medications Medication Instructions Dosage Effective Dates (start - stop) Status Comments lisinopril 40 mg tablet TAKE 1 TABLET BY ORAL ROUTE EVERY DAY 40 MG - Active amlodipine 5 mg tablet take 1 Tablet by Oral route once 1 Tablet - Active Cialis 5 mg tablet TAKE ONE TABLET BY MOUTH EVERY DAY 5 MG - Active metformin 1,000 mg tablet take 1 tablet by oral route 2 times every day with morning and evening meals 1000 MG - Active Proventil HFA 90 mcg/actuation aerosol inhaler inhale 2 puff by inhalation route every 4 - 6 hours as needed - Active May substitute Proair if preferred. Lancets,Ultra Thin 26 gauge take 1 each by [facility] [place].(non-drug; combo) route every day 1 each - Active Accu-Chek Missy Plus test strips take by [facility] [place]Non-Drug; Combo Route) route once test once a day Not Available - Active Advance Directives Directive Yes / No Effective Date File Name No Information Encounters Encounter Description Practice Location Reason(s) For Visit Diagnoses Date Provider Providers Copied on Encounter [employer], [address], [place], [place], [address] , [place] tel: [phone] [facility] No Information Mario Valdes. [address], [address], [place], [place], [address], [place]. tel:[phone] [facility], [address], [place], [place], [address] , [place] tel: [phone] [facility] No Information Prashanth Essence Castro. [address], [address], [place], [place], [address]. tel: [phone] [facility], [address], [place], [place], [address] , tel: [phone] [facility] Type 2 diabetes mellitus without complicationsUns pecified essential hypertension Mushtaq Amato. [address] [place] [address], [address], [place], [place], [address], [place]. tel:[phone] Referring Provider: Gloria Lowry, [address] [place] [address] [address], [place], [address] . tel:[phone] [facility], [address], [place], [place], [address] , [place] tel: [phone] [facility] Unspecified essential hypertension 7 Prashanth Essence Tapiaan. [address] [place] [address], [address], [place], [place], [address]. tel:[phone] Referring Provider: Gloria Lowry, [address] [place] [address] [address], [place], [address] . tel:[phone] [facility], [address], [place], [place], [address] , tel: [phone] [facility] No Information 7 Prashanth Essence Tapiaan. [address] [place] [address], [address], [place], [place], [address]. tel:[phone] [facility], [address], [place], [place], [address] , [place] tel: [phone] [facility] Cubital tunnel syndrome of both upper extremitiesUnspe cified essential hypertension 6 Ernie Johnson. [address], [address], [place], [place], [address], [place]. tel:[phone] Referring Provider: Gloria Lowry, [address], [place], [address] . tel:[phone] [employer], [address], [place], [place], [address] , [place] tel: [phone] [facility] Essential (primary) hypertensionType 2 diabetes mellitus without complicationsSar coidosis, unspecifiedEleva david blood proteinSeasonal allergic rhinitis, unspecified allergic rhinitis trigger 6 Ernie Johnson. [address], [address], [place], [place], [address], [place]. tel:[phone] Referring Provider: Gloria Lowry, [address], [place], [address] . tel:[phone] [employer], [address], [place], [place], [address] , [place] tel: [phone] [facility] Testosterone (chief complaint) Urinary frequencyMale erectile dysfunction, unspecifiedHypog onadism in male 6 Eric Newman. [address], [facility] [address], [address], [place]. tel:[phone] Referring Provider: Gloria Lowry, [address], [place], [address] . tel:[phone] [employer], [address], [place], [place], [address] , [place] tel:[phone] [facility] Male erectile dysfunction, unspecified 6 Syed Rivas. [address], [address], [place], [place], [address]. tel:[phone] [facility], [address], [place], [place], [address] , [place] tel: [phone] [facility] Hypogonadism in male Prashanth Castro. [address], [address], [place], [place], [address]. tel:[phone] [facility], [address], [place], [place], [address] , [place] tel: [phone] [facility] Encntr for general adult medical exam w/o abnormal findingsEssentia l (primary) hypertensionType 2 diabetes mellitus without complicationsSar coidosis, unspecifiedAller gic rhinitis due to pollenMale erectile dysfunction, unspecifiedEncou nter for immunization 5 Ernie Johnson. [address], [address], [place], [place], [address], [place]. tel:[phone] Referring Provider: Gloria Lowry, [address] [place] [address] [address], [place], [address] . tel:[phone] [facility], [address], [place], [place], [address] , [place] tel: [phone] [facility] No Information Prashanth Castro. [address] [place] [address], [address], [place], [place], [address]. tel:[phone] [facility], [address], [place], [place], [address] , [place] tel: [phone] [facility] SarcoidosisUnspe cified essential hypertensionDiab etes (high blood sugar disease) with complications, blood sugar not under controlOther and unspecified angina pectorisCostocho ndritis, acute Prashanth Castro. [address] [place] [address], [address], [place], [place], [address]. [phone] Referring Provider: Gloria Lowry, [address] [place] [address] [address], [place], [address] . tel:[phone] [facility], [address], [place], [place], [address] , tel: [phone] [facility] Diabetes Mellitus Type 2, UncomplicatedAci d reflux 4 Brie Perdue. [address], [facility] [address], [place], [place], [address], [place]. tel:[phone] Referring Provider: Gloria Lowry, [address] [facility] [address], [place], [address] . tel:[phone] [facility], [address], [place], [place], [address] , [place] tel: [phone] [facility] preventive exam (chief complaint)chr onic conditions (chief complaint)CP (chief complaint) [facility]ergic rhinitis due to pollenSarcoidosi sDiabetes Mellitus Type 2, UncomplicatedRed undant prepuce and phimosisErectile DysfunctionChest TightnessNEED FOR PROPHYLACTIC VACCINATION WITH COMBINED DIPHTHERIA-TETAN US-PERTUSSIS (DTP) (DTAP) VACCINERoutine Medical Exam 3 Ernie Johnson. [address] [facility] [address], [facility] [address], [place], [place], [address], [place]. [phone] Referring Provider: Gloria Lowry, [address] [place] [address], [place], [address] . tel:[phone] [facility], [address], [place], [place], [address] , tel:[phone] [facility] diabetes (follow up) (chief complaint) Redundant prepuce and phimosisSarcoido sisPersonal history of noncompliance with medical treatment, presenting hazards to healthAllergic rhinitis due to pollenRoutine general medical examination at a health care facilityLoss of weightSarcoidosi sPersonal history of noncompliance with medical treatment, presenting hazards to healthRedundant prepuce and phimosisImpotenc e of organic origin 1 Prashanth Castro. [address], [address], [place], [place], [address]. tel:[phone] Referring Provider: Gloria Lowry, [address], [address] . tel:[phone] Family History Family Member Type Diagnosis Age At Onset Sister Problem (finding) Allergies Sister Problem (finding) coronary arterioscleros is Father Problem (finding) Allergies Father Problem (finding) diabetes melli tus in first degree relative Mother Problem (finding) hypertension Immunizations Vaccine Date Status Comments Pneumococcal polysaccharide PPV23 administered Source: New Immuniza tion Record Influenza, seasonal, injecta ble (3 yrs or older) administered Source: Source Unspe cified Influenza, seasonal, injecta ble (3 yrs or older) administered Source: Other Regist ry Tdap (Boostrix r) administered Source: [place] Immunization Record Payers Payer name Insurance type Covered democrat ID Authoriza tion(s) [employer] INACTIVE OUT OF STATE [id number] [employer]IVE OUT OF STATE [id number] Social History Type Description Quantity Date Captured Comments Sex Male Smoking Status No Information Chief Complaint And Reason For Visit No Information Reason For Referral Reason For Referral No Information History Of Present Illness Encounter Date Complaint History Of Prese nt Illness Low Testosterone (comments) mayo ent presents for consultation and evaluation of lower urinary tract symptoms and hypogonadism. Referred by Dr. Newman. The patient reports a one year history of a declining energy levels and libido. He has taken Viagra and Cialis intermittently for erectile dysfunction. He complains of urinary frequency and urgency. The patient is a diabetic. He reports his sugars are controlled. No family history of prostate cancer. Nonsmoker. Patient overweight. Not exercising. PSA 0.37. Testosterone 225. Minimal caffeine consumption Low Testosterone chronic conditions Routine gener al medical examination at a health care facility (Routine.) Unspecified essential hypertension (onset 10/15/2006; Chronic. Patient denies dyspnea, dizziness, palpitations. Headaches daily, believes related to allergies. Continues on Lisinopril daily.) Allergic rhinitis due to pollen (onset 09/14/2005; Chronic. Has been out of Singulair for some time; allergies flaring up.) Sarcoidosis (onset 02/14/2006; Chronic. Hasn't seen specialist recently; breathing stable.) Diabetes mellitus without mention of complication, (onset 02/14/2007; Chronic. Checking blood sugars once a month; last BG was 130. Ran out of Metformin ER over a year ago.) Redundant prepuce and phimosis (onset 10/15/2010; Resolved. Circumcision completed per Dr. Medley) Impotence of organic origin (onset 02/14/2011; Chronic. Unable to afford Cialis; it was effective when he was using daily.) Associated symptoms include fatigue. Pertinent negatives include weight gain and weight loss. CP For the past 3 w kathya has been experiencing some occasional chest pain. Describes as sharp, achy at times. Pain occuring less than once a week. Pain isn't associated with eating, empty stomach, stress. Pain lasts just short period of time, maybe a minute. Relieved on its own. During episodes of pain, it will worsen if taking a deep breath. No cardiac history. Some family history, grandmother of cardiac disease. preventive exam Functional Status Date Functional Assessmen t No Information Instructions Date Instruction Additional Infor mukul recommend exercise, weight loss. Discussed FDA warnings on testosterone replacement. Discussed injection therapy, androgel and testosterone implants. The patient is considering testosterone implant Related to Hypogonadism in male Viagra Related to Male erectile dysfunction, unspecified control sugars. Mini martell caffeine. Overactive bladder medicine next Related to Urinary frequency Disease process Assessments Type Assessment Date No Information Patient Care Teams Name Effective Dates (start - stop) Status Members No Information
--- OUTSIDE RECORDS SUMMARY | 2024-09-25 11:45 | XMS_ITS | Data Portability ---
Author Organization [facility] [employer] Address [address] [place] [address] Assessment Encounter Date Assessment Date Assessment LastModified by Organization Details LastModified Time 06/02/2019 06/02/2019 Education was provided on healthy nutrition, including a diet rich in fruits and vegetables, minimizing simple carbohydrates, salt, and saturated fats. Encouraged regular cardiovascular exercise such as walking at least 30 minutes daily, 5 times per week. Not available 06/02/2019 16:29:03 01/18/2020 01/18/2020 Patient presente d for follow up. Studies ordered as below. Discussed plan with patient/caregiver , who expressed understanding. Follow up as noted below. [email or web address] Not available 01/18/2020 09:41:13 04/18/2020 04/18/2020 Patient presente d for follow up. Studies ordered as below. Discussed plan with patient/caregiver , who expressed understanding. Follow up as noted below. [email or web address] Not available 04/18/2020 12:57:49 06/13/2020 06/13/2020 Patient presente d for follow up. Studies ordered as below. Discussed plan with patient/caregiver , who expressed understanding. Follow up as noted below. [email or web address] Not available 06/13/2020 15:20:44 Plan of Treatment Reminders Order Date Submit Date Provider Last Modified By Organization Details Last Modified Time Details Appointments None recorded. Lab hemoglobin A1c, QN, blood 2020 021 [email or web address] Not available 08:44:39 CMP, serum or plasma 2020 021 [email or web address] Not available 04/19/202 1 08:44:40 lipid panel, serum 2020 021 [email or web address] Not available 1 08:44:40 CK (creatine kinase), total, serum 2020 021 [email or web address] Not available 1 08:44:40 microalbum in/creatin ine, mass ratio, urine 2019 [email or web address] Not available 0 13:35:21 hemoglobin A1c, QN, blood 2019 [email or web address] Not available 0 13:35:21 CMP, serum or plasma 2019 [email or web address] Not available 0 13:35:21 lipid panel, serum 2019 [email or web address] Not available 0 13:35:21 lipid panel, serum 2019 [email or web address] Not available 0 09:11:21 CK (creatine kinase), total, serum 2019 [email or web address] Not available 0 09:11:21 PSA, serum or plasma 2019 SIDNEY Not available 0 10:51:52 hemoglobin A1c, QN, blood 2019 [email or web address] Not available 0 09:11:21 CMP, serum or plasma 2019 [email or web address] Not available 0 09:11:21 microalbum in/creatin ine, mass ratio, urine 2019 020 [email or web address] Not available 0 09:11:21 hemoglobin A1c, QN, blood 2019 020 SIDNEY Not available 0 10:15:21 CMP, serum or plasma 2019 020 SIDNEY Not available 0 10:15:21 lipid panel, serum 2019 020 SIDNEY Not available 0 10:15:22 microalbum in/creatin ine, mass ratio, urine 2019 020 SIDNEY Not available 0 10:15:22 vitamin B12, serum 2019 020 SIDNEY Not available 0 15:46:28 microalbum in/creatin ine, mass ratio, urine 2019 020 SIDNEY Not available 0 15:46:28 lipid panel, serum 2019 020 SIDNEY Not available 0 15:46:28 hemoglobin A1c, QN, blood 2019 020 [email or web address] Not available 0 09:12:13 CMP, serum or plasma 2019 020 SIDNEY Not available 0 15:46:[address] referral 2020 ernesto Leal MD, [address] [place], [address], 1 16:20:[address] referral 2019 ernesto Leal MD, [address] [place], [address], 1 08:43:24 urologist referral 2019 020 ernesto Vidal MD, [address], [address], 0 08:38:22 gastroente rologist referral 2019 020 [email or web address] Not available 0 15:28:43 diabetic ophthalmol ogy referral 2019 020 ernesto Hooks MD, [address] [facility], [address], [address], 0 08:38:21 wellness educator referral 2019 ernesto [facility] Diabetes [facility], [address] [facility] , [address], [place], [address], 0 08:38:21 diabetic nutrition education referral 2019 ernesto [facility], [address] [facility] [address], [place], [address], 0 08:38:21 pulmonolog ist referral 2019 020 ernesto Olmstead, [address] [facility] , [address], [place], [address], 0 15:12:33 gastroente rologist referral 2019 020 KAVITHA Boudreaux MD, [address], [address], [place], [address], 0 18:20:28 wellness educator referral 2019 020 ernesto [facility] Diabetes [facility], [address] [facility] [address], [place], [address], 0 15:12:[address]/dietiti an referral 2019 020 ernesto [facility], [address] [facility] [address], [place], [address], 0 15:12:32 diabetic ophthalmol ogy referral 2019 020 ernesto Hooks MD, [address] [facility] , [address], [place], [address], 0 15:12:32 Procedures None recorded. Surgeries None recorded. Imaging XR, chest, 2 view 2019 ernesto [facility] [address], [address], [place], [address], 0 09:13:01 XR, chest, 2 view 2019 [email or web address] Not available 0 14:45:53 Medication Orders tadalafil 20 mg tablet 2020 021 INTERFACE Not available 1 16:07:17 albuterol sulfate HFA 90 mcg/actuat ion aerosol inhaler 2020 INTERFACE [facility], [address] [place] [address], [address], 1 16:07:06 Trelegy Ellipta 100 mcg-62.5 mcg-25 mcg powder for inhalation 2020 INTERFACE [facility], [address] [place] [address], [address], 1 16:07:08 rosuvastat in 10 mg tablet 2020 021 INTERFACE Not available 1 16:07:13 pravastati n 40 mg tablet 2019 020 [facility], [address] [place] [address], [address], 1 15:54:18 amlodipine 10 mg tablet 2019 020 INTERFACE [facility], [address] [place] [address], [address], 0 10:51:47 pravastati n 40 mg tablet 2019 020 [employer] [facility], [address] [place] [address], [address], 1 15:54:18 amlodipine 10 mg tablet 2019 020 INTERFACE [facility], [address] [place] [address], [address], 0 11:46:10 fluticason e propionate 50 mcg/actuat ion nasal spray,susp ension 2019 020 INTERFACE [id number], [address] , [place], [place], [id number], 0 16:34:10 cyanocobal mayer (vit B-12) 1,000 mcg/mL injection solution 2019 Not available 0 11:27:49 amlodipine 10 mg tablet 2019 INTERFACE [facility], [address] [place] [address], [address], 0 16:34:04 pravastati n 40 mg tablet 2019 [facility], [address] [place] [address], [address], 1 15:54:18 Cialis 20 mg tablet 2019 INTERFACE Not available 0 16:34:13 ProAir HFA 90 mcg/actuat ion aerosol inhaler 2019 020 INTERFACE [id number], [address] , [place], [place], [id number], 0 16:34:10 Patient TargetsNo targets recorded. Patient Instructions Encounter Date Encounter Id Patient Instructions Last Modified By Organization Details Last Modified Time 06/02/2019 [id number] home sleep testing* [email or web address] Not available 06/30/2019 15:12:38 dash diet: care instructions Not available 06/02/2019 16:34:00 high cholesterol : care instructions Not available 06/02/2019 16:34:00 advised to lose weight Not available 06/02/2019 16:34:00 spirometry testing* SIDNEY Not available 06/02/2019 19:24:46 Discussed and explained advance directives such as standard forms to the {{patient caregiv er patient and caregiver}}. Face to face discussion lasted for a duration of ___ minutes. [email or web address] Not available 06/02/2019 15:35:01 01/18/2020 [id number] spirometry testing* SIDNEY Not available 01/18/2020 17:26:52 advised to lose weight Not available 01/18/2020 10:51:42 04/18/2020 [id number] advised to lose weight Not available 04/18/2020 13:40:13 06/13/2020 [id number] advised to lose weight Not available 06/13/2020 16:07:03 Reason for Referral Explosives Truck Driver Referral f or Type 2 diabetes mellitus without complication Referring Physician: Jose Tao, Encounter Date: 06/02/2019 Associate Sales/dietitian Refer ral for Type 2 diabetes mellitus without complication Referring Physician: Jose Tao, Encounter Date: 06/02/2019 Diabetic Ophthalmology Refer ral for Type 2 diabetes mellitus without complication Referring Physician: Jose Tao, Encounter Date: 06/02/2019 Diesel Pile Driver Operator Referral for S arcoidosis Referring Physician: Jose Tao, Encounter Date: 06/02/2019 Computer Software Engineer Referral for Screening for malignant neoplasm of colon Referring Physician: Jose Tao, Encounter Date: 06/02/2019 Diabetic Ophthalmology Refer ral for Type 2 diabetes mellitus without complication Referring Physician: Jose Tao, Encounter Date: 01/18/2020 Explosives Truck Driver Referral f or Type 2 diabetes mellitus without complication Referring Physician: Jose Tao, Encounter Date: 01/18/2020 Diabetic Nutrition Education Referral for Type 2 diabetes mellitus without complication Referring Physician: Jose Tao, Encounter Date: 01/18/2020 Computer Software Engineer Referral for Screening for malignant neoplasm of colon Referring Physician: Jose Tao, Encounter Date: 01/18/2020 Urologist Referral for Prima ry erectile dysfunction Referring Physician: Jose Tao, Encounter Date: 01/18/2020 Physical Security Specialist Referral for Sy ncope Referring Physician: Chris Hernandez, Internal Medicine, Encounter Date: 04/18/2020 Physical Security Specialist Referral for Sy ncope Referring Physician: Chris Hernandez, Internal Medicine, Encounter Date: 06/13/2020 Results Created Date Observation Date Name Description Value Unit Range Abnormal Flag Note LastModifiedBy Organization Detail LastModifiedTime 06/02/19 20 06/02/2019 hemog lobin A1c, QN, blood HGBA1C 8.4 % 4.0-6. 0 high Testi ng Perfo rmed at: [facility] [employer] [address], [address] [place] [address] Phone : Fax: Not Available [facility] [place] [address] [place], [address], 06/03/2019 15:46:27 06/02/19 20 06/02/2019 CMP, serum or plasm a glucose 104 mg/dL 74-99 high Not Available [facility] [place] [address] [place], [address], 06/03/2019 15:46:27 06/02/19 20 06/02/2019 CMP, serum or plasm a urea nitrogen, blood (BUN) 16 mg/dL 6-20 Not Available [place] [address] [place], [address], 06/03/2019 15:46:27 06/02/1906/02/2019 CMP, serum or plasm a total bilirubin 0.6 mg/dL 0.0-1. 2 Not Available [facility] [place] [address] [place], [address], 06/03/2019 15:46:27 06/02/1906/02/2019 CMP, serum or plasm a total protein 8.4 g/dL 6.6-8. 7 Not Available [place] [address] [place], [address], 06/03/2019 15:46:27 06/02/19 20 06/02/2019 CMP, serum or plasm a alanine aminotransfe rase (ALT) 27 U/L 0-41 Not Available [place] [address] [place], [address], 06/03/2019 15:46:27 06/02/19 20 06/02/2019 CMP, serum or plasm a alkaline phosphatase 53 U/L 40-130 Not Available [place] [address] [place], [address], 06/03/2019 15:46:27 06/02/19 20 06/02/2019 CMP, serum or plasm a aspartate aminotransfe rase (AST) 29 U/L 0-40 Not Available [facility] [place] [address] [place], [address], 06/03/2019 15:46:27 06/02/19 20 06/02/2019 CMP, serum or plasm a calcium 9.4 mg/dL 8.6-10 .2 Not Available [facility] [place] [address] [place], [address], 06/03/2019 15:46:27 06/02/19 20 06/02/2019 CMP, serum or plasm a albumin 4.8 g/dL 3.5-5. 2 Not Available [facility] [place] [address] [place], [address], 06/03/2019 15:46:27 06/02/19 20 06/02/2019 CMP, serum or plasm a CO2 28 mmol/ L 22-29 Not Available [facility] [place] [address] [place], [address], 06/03/2019 15:46:27 06/02/19 20 06/02/2019 CMP, serum or plasm a creatinine, serum 0.9 mg/dL 0.7-1. 2 Not Available [facility] [place] [address] [place], [address], 06/03/2019 15:46:27 06/02/19 20 06/02/2019 CMP, serum or plasm a sodium, serum 136 mmol/ L 136-14 5 Not Available [place] [address] [place], [address], 06/03/2019 15:46:27 06/02/19 20 06/02/2019 CMP, serum or plasm a potassium, serum 3.7 mmol/ L 3.5-5. 1 Not Available [place] [address] [place], [address], 06/03/2019 15:46:27 06/02/19 20 06/02/2019 CMP, serum or plasm a chloride, serum 95 mmol/ L 98-107 low Not Available [place] [address] [place], [address], 06/03/2019 15:46:27 06/02/19 20 06/02/2019 CMP, serum or plasm a eGFR 98 >59 Persi stent reduc tion for 3 month s or more in an eGFR <60 mL/mi n/1.7 3 m2 defin es CKD. Patie nts with eGFR value s>/=6 0 mL/mi n/1.7 3 m2 may also have CKD if evide nce of persi stent protu niuri a is prese nt. Addit ional infor serena del real may be found at www.k doqi. org. Not Available [place] [address] [address] [place], [address], 06/03/2019 15:46:27 06/02/19 20 06/02/2019 lipid panel , serum trigylceride s 99 mg/dL 0-150 Not Available [facility] [place] [address] [place], [address], 06/03/2019 15:46:28 06/02/19 20 06/02/2019 lipid panel , serum cholesterol 145 mg/dL 0-200 Not Available [place] [address] [place], [address], 06/03/2019 15:46:28 06/02/19 20 06/02/2019 lipid panel , serum uhdl 37 mg/dL 35-55 Not Available [place] [address] [place], [address], 06/03/2019 15:46:28 06/02/19 20 06/02/2019 lipid panel , serum LDL, calculated 88 mg/dL 0-100 Not Available [place] [address] [place], [address], 06/03/2019 15:46:28 06/02/19 20 06/02/2019 lipid panel , serum LDL/HDL ratio 2 mg/dL 0-5 Not Available [place] [address] [place], [address], 06/03/2019 15:46:28 06/02/19 20 06/02/2019 lipid panel , serum VLDL 19.8 mg/dL 5.0-40 .0 Not Available [place] [address] [place], [address], 06/03/2019 15:46:28 06/02/19 20 06/02/2019 lipid panel , serum cholesterol/ HDL ratio 3.92 0.00-5 .00 Not Available [place] [address] [place], [address], 06/03/2019 15:46:28 06/02/19 20 06/02/2019 vitam in B12, serum vitamin B12 II 2000 pg/mL 232-12 45 high Testi ng Perfo rmed at: [facility] [address], [address] [place] [address] Phone : Fax: Not Available [place] [address] [place], [address], 06/03/2019 15:46:28 06/02/19 20 06/02/2019 micro album in/cr eatin ine, mass ratio , urine urine microalbumin 18 mg/L 0-30 Not Available [place] [address] [address] [place], [address], 06/03/2019 15:46:28 06/02/19 20 06/02/2019 micro album in/cr eatin ine, mass ratio , urine urine creatinine 205.46 Not Available [place] [address] [address] [place], [address], 06/03/2019 15:46:28 06/02/19 20 06/02/2019 micro album in/cr eatin ine, mass ratio , urine urine microalbumin /creatinine ratio 9 mg/g_ creat inine 0-30 Not Available [place] [address] [address] [place], [address], 06/03/2019 15:46:28 06/03/19 20 06/03/2019 iqra metry testi ng* Spirometry Not Available [facility], [address], [place], [address], 06/02/2019 16:32:14 10/14/19 20 10/14/2019 hemog lobin A1c, QN, blood HGBA1C 8.4 % 4.0-6. 0 high Testi ng Perfo rmed at: [facility] [email or web address], [facility] [address], [address] [place] [address] Phone : Fax: Not Available [place] [address] [address] [place], [address], 10/15/2019 10:15:21 10/14/1910/14/2019 CMP, serum or plasm a glucose 140 mg/dL 74-99 high Not Available [place] [address] [place], [address], 10/15/2019 10:15:21 10/14/19 20 10/14/2019 CMP, serum or plasm a urea nitrogen, blood (BUN) 13 mg/dL 6-20 Not Available [facility] [place] [address] [place], [address], 10/15/2019 10:15:21 10/14/19 20 10/14/2019 CMP, serum or plasm a total bilirubin 0.5 mg/dL 0.0-1. 2 Not Available [facility] [place] [address] [place], [address], 10/15/2019 10:15:21 10/14/19 20 10/14/2019 CMP, serum or plasm a total protein 8.6 g/dL 6.6-8. 7 Not Available [facility] [place] [address] [place], [address], 10/15/2019 10:15:21 10/14/19 20 10/14/2019 CMP, serum or plasm a alanine aminotransfe rase (ALT) 31 U/L 0-41 Not Available [facility] [place] [address] [place], [address], 10/15/2019 10:15:21 10/14/19 20 10/14/2019 CMP, serum or plasm a alkaline phosphatase 69 U/L 40-130 Not Available [facility] [place] [address] [place], [address], 10/15/2019 10:15:21 10/14/19 20 10/14/2019 CMP, serum or plasm a aspartate aminotransfe rase (AST) 20 U/L 0-40 Not Available [facility] [place] [address] [place], [address], 10/15/2019 10:15:21 10/14/1910/14/2019 CMP, serum or plasm a calcium 10.0 mg/dL 8.6-10 .2 Not Available [facility] [place] [address] [place], [address], 10/15/2019 10:15:21 10/14/1910/14/2019 CMP, serum or plasm a albumin 4.9 g/dL 3.5-5. 2 Not Available [place] [address] [place], [address], 10/15/2019 10:15:21 10/14/1910/14/2019 CMP, serum or plasm a CO2 29 mmol/ L 22-29 Not Available [facility] [place] [address] [address] [place], [address], 10/15/2019 10:15:21 10/14/1910/14/2019 CMP, serum or plasm a creatinine, serum 0.8 mg/dL 0.7-1. 2 Not Available [place] [address] [address] [place], [address], 10/15/2019 10:15:21 10/14/1910/14/2019 CMP, serum or plasm a sodium, serum 139 mmol/ L 136-14 5 Not Available [facility] [place] [address] [address] [place], [address], 10/15/2019 10:15:21 10/14/1910/14/2019 CMP, serum or plasm a potassium, serum 4.3 mmol/ L 3.5-5. 1 Not Available [place] [address] [address] [place], [address], 10/15/2019 10:15:21 10/14/1910/14/2019 CMP, serum or plasm a chloride, serum 98 mmol/ L 98-107 Not Available [facility] [place] [address] [address] [place], [address], 10/15/2019 10:15:21 10/14/1910/14/2019 CMP, serum or plasm a eGFR 103 >59 Persi stent reduc tion for 3 month s or more in an eGFR <60 mL/mi n/1.7 3 m2 defin es CKD. Patie nts with eGFR value s>/=6 0 mL/mi n/1.7 3 m2 may also have CKD if evide nce of persi stent protu niuri a is prese nt. Addit ional infor serena del real may be found at www.k doqi. org. Not Available [facility] [place] [address] [place], [address], 10/15/2019 10:15:21 10/14/19 20 10/14/2019 lipid panel , serum trigylceride s 136 mg/dL 0-150 Not Available [facility] [place] [address] [place], [address], 10/15/2019 10:15:22 10/14/19 20 10/14/2019 lipid panel , serum cholesterol 154 mg/dL 0-200 Not Available [facility] [place] [address] [place], [address], 10/15/2019 10:15:22 10/14/19 20 10/14/2019 lipid panel , serum uhdl 45 mg/dL 35-55 Not Available [facility] [place] [address] [place], [address], 10/15/2019 10:15:22 10/14/19 20 10/14/2019 lipid panel , serum LDL, calculated 82 mg/dL 0-100 Not Available [facility] [place] [address] [place], [address], 10/15/2019 10:15:22 10/14/19 20 10/14/2019 lipid panel , serum LDL/HDL ratio 2 mg/dL 0-5 Not Available [facility] [place] [address] [place], [address], 10/15/2019 10:15:22 10/14/19 20 10/14/2019 lipid panel , serum VLDL 27.2 mg/dL 5.0-40 .0 Not Available [facility] [place] [address] [place], [address], 10/15/2019 10:15:22 10/14/19 20 10/14/2019 lipid panel , serum cholesterol/ HDL ratio 3.42 0.00-5 .00 Testi ng Perfo rmed at: [facility] [address], [address] [place] [address] Phone : Fax: Not Available [place] [address] [place], [address], 10/15/2019 10:15:22 10/14/19 20 10/14/2019 micro album in/cr eatin ine, mass ratio , urine urine microalbumin 33 mg/L 0-30 high Not Available [place] [address] [place], [address], 10/15/2019 10:15:22 10/14/19 20 10/14/2019 micro album in/cr eatin ine, mass ratio , urine urine creatinine 249.18 mg/dL Not Available [place] [address] [place], [address], 10/15/2019 10:15:22 10/14/19 20 10/14/2019 micro album in/cr eatin ine, mass ratio , urine urine microalbumin /creatinine ratio 13 mg/g_ creat inine 0-30 Not Available [place] [address] [place], [address], 10/15/2019 10:15:22 01/18/20 20 01/18/2020 iqra metry testi ng* Spirometry Not Available [facility], [facility] [address], [place], [address], 01/18/2020 10:45:33 05/15/19 21 05/15/2020 hemog lobin A1c, QN, blood HGBA1C 7.5 % 4.0-6. 0 high Testi ng Perfo rmed at: [facility] [address], [address] [place] [address] Phone : [phone] Fax: Not Available [address] [place], [place], [address], 05/16/2020 12:52:43 05/15/19 21 05/15/2020 CMP, serum or plasm a glucose 144 mg/dL 74-99 high Not Available [facility] [place] [address] [place], [address], 05/16/2020 12:52:43 05/15/19 21 05/15/2020 CMP, serum or plasm a urea nitrogen, blood (BUN) 15 mg/dL 6-20 Not Available [facility] [place] [address] [place], [address], 05/16/2020 12:52:43 05/15/1905/15/2020 CMP, serum or plasm a total bilirubin 0.5 mg/dL 0.0-1. 2 Not Available [facility] [place] [address] [place], [address], 05/16/2020 12:52:43 05/15/19 21 05/15/2020 CMP, serum or plasm a total protein 8.4 g/dL 6.6-8. 7 Not Available [facility] [place] [address] [place], [address], 05/16/2020 12:52:43 05/15/1905/15/2020 CMP, serum or plasm a alanine aminotransfe rase (ALT) 28 U/L 0-41 Not Available [facility] [place] [address] [place], [address], 05/16/2020 12:52:43 05/15/1905/15/2020 CMP, serum or plasm a alkaline phosphatase 62 U/L 40-130 Not Available [facility] [place] [address] [place], [address], 05/16/2020 12:52:43 05/15/19 21 05/15/2020 CMP, serum or plasm a aspartate aminotransfe rase (AST) 23 U/L 0-40 Not Available [facility] [place] [address] [place], [address], 05/16/2020 12:52:43 05/15/19 21 05/15/2020 CMP, serum or plasm a calcium 10.1 mg/dL 8.6-10 .2 Not Available [facility] [place] [address] [place], [address], 05/16/2020 12:52:43 05/15/19 21 05/15/2020 CMP, serum or plasm a albumin 4.9 g/dL 3.5-5. 2 Not Available [facility] [place] [address] [place], [address], 05/16/2020 12:52:43 05/15/1905/15/2020 CMP, serum or plasm a CO2 29 mmol/ L 22-29 Not Available [facility] [place] [address] [place], [address], 05/16/2020 12:52:43 05/15/1905/15/2020 CMP, serum or plasm a creatinine, serum 0.8 mg/dL 0.7-1. 2 Not Available [facility] [place] [address] [place], [address], 05/16/2020 12:52:43 05/15/1905/15/2020 CMP, serum or plasm a sodium, serum 135 mmol/ L 136-14 5 low Not Available [facility] [place] [address] [place], [address], 05/16/2020 12:52:43 05/15/1905/15/2020 CMP, serum or plasm a potassium, serum 4.1 mmol/ L 3.5-5. 1 Not Available [facility] [place] [address] [place], [address], 05/16/2020 12:52:43 05/15/1905/15/2020 CMP, serum or plasm a chloride, serum 99 mmol/ L 98-107 Not Available [facility] [place] [address] [place], [address], 05/16/2020 12:52:43 05/15/19 21 05/15/2020 CMP, serum or plasm a eGFR 109 >59 Persi stent reduc tion for 3 month s or more in an eGFR <60 mL/mi n/1.7 3 m2 defin es CKD. Patie nts with eGFR value s>/=6 0 mL/mi n/1.7 3 m2 may also have CKD if evide nce of persi stent protu niuri a is prese nt. Addit ional infor serena del real may be found at www.k doqi. org. Not Available [facility] [place] [address] [place], [address], 05/16/2020 12:52:43 05/15/1905/15/2020 lipid panel , serum trigylceride s 85 mg/dL 0-150 Not Available [facility] [place] [address] [place], [address], 05/16/2020 12:52:43 05/15/1905/15/2020 lipid panel , serum cholesterol 137 mg/dL 0-200 Not Available [facility] [place] [address] [place], [address], 05/16/2020 12:52:43 05/15/1905/15/2020 lipid panel , serum uhdl 39 mg/dL 35-55 Not Available [facility] [place] [address] [place], [address], 05/16/2020 12:52:43 05/15/1905/15/2020 lipid panel , serum LDL, calculated 81 mg/dL 0-100 Not Available [facility] [place] [address] [place], [id number], 05/16/2020 12:52:43 05/15/1905/15/2020 lipid panel , serum LDL/HDL ratio 2 mg/dL 0-5 Not Available [address] [place], [address], 05/16/2020 12:52:43 05/15/19 21 05/15/2020 lipid panel , serum VLDL 17.0 mg/dL 5.0-40 .0 Not Available [address] [address] [place], [address], 05/16/2020 12:52:43 05/15/19 21 05/15/2020 lipid panel , serum cholesterol/ HDL ratio 3.51 0.00-5 .00 Testi sharda Perfo rmed at: [facility], [facility] [address], [address] [place] [address] Phone : [phone] Fax: Not Available [address] [address] [place], [address], 05/16/2020 12:52:43 05/15/19 21 05/15/2020 micro album in/cr eatin ine, mass ratio , urine urine microalbumin 43 mg/L 0-30 high Not Available [address] [place], [address], 05/16/2020 12:52:44 05/15/19 21 05/15/2020 micro album in/cr eatin ine, mass ratio , urine urine creatinine 280.36 mg/dL Not Available [address] [address] [place], [address], 05/16/2020 12:52:44 05/15/19 21 05/15/2020 micro album in/cr eatin ine, mass ratio , urine urine microalbumin /creatinine ratio 15 mg/g_ creat inine 0-30 Not Available [address] [address] [place], [address], 05/16/2020 12:52:44 07/21/19 21 07/20/2020 vitam in B12, serum vitamin B12 II 202 pg/mL 232-12 45 low Not Available [address], [address], 07/21/2020 11:20:59 06/02/19 20 iqra metry testi ng* No observ ation record ed. yasmanisoumyabrie [facility], [facility] [address], [place], [address], 06/03/2019 16:09:03 06/02/19 20 iqra metry testi ng* No observ ation record ed. freya Not Available 2019 16:08:37 10/14/19 20 elect rachanajonathan francogr am No observ ation record ed. Not Available 2019 10:30:25 01/18/20 20 01/18/2020 iqra metry testi ng* No observ ation record ed. yasmanisoumyabrie [facility], [facility] [address], [place], [address], 01/19/2020 11:24:39 04/14/20 20 04/14/2020 XR, chest , 1 view No observ ation record ed. [email or web address] Not Available 2019 10:51:27 Result Notes None recorded. Problems Name Problem SNOMED Code Status Onset Date Resolution Date Notes Provider Name and Address Organization Details Recorded Time Diabetes mellitus 18563253 Active 2016 Not Available [facility] 0 05:31:18 Hypertensive disorder 87139234 Active 2016 Not Available [facility] 0 05:31:18 Vitamin B12 deficiency (non anemic) 66050798 Active 2018 Not Available [facility] 0 05:31:18 Syncope 273334176 Active 2019 Not Available [facility] 0 05:31:19 COVID-19 120413382 Active 2019 Not Available [facility] 0 05:31:18 Suspected COVID-19 808355063 Active 2020 Chris Hernandez MD [address], [place], [address] , [facility] 1 15:54:26 Problem Notes None recorded. Procedures Surgical History Date Name Laterality Status Provider Name and Address Organization Details Recorded Time 9 Diabetic Foot Exam completed Chris Hernandez MD [address], [place], [address], [facility] 07/16/2018 10:14:48 8 [facility] 09:41:15 Other completed Chris Hernandez MD [address], [place], [address], [facility] 01/23/2017 16:18:09 Shoulder joint surgery completed Chris Hernandez MD [address], [place], [address], [facility] 01/23/2017 16:08:34 Carpal tunnel surgery completed Chris Hernandez MD [address], [place], [address], [facility] 01/23/2017 16:19:17 Imaging Results Imaging Date Name Status LastModified by Organization Details LastModified Time 06/02/2019 spirometry testing* completed yasmanimarina [facility], [facility] [address], [place], [address], 06/03/2019 16:09:03 06/02/2019 spirometry testing* completed freya Infor mation not available 06/03/2019 16:08:37 10/14/2019 electrocardiogram completed Informa tion not available 01/18/2020 10:30:25 01/18/2020 spirometry testing* completed tundebrie [facility], [facility] [address], [place], [address], 01/19/2020 11:24:39 04/14/2020 XR, chest, 1 view completed Informa tion not available 04/17/2020 10:51:27 Procedure Notes None recorded. Medical Equipment None Reported. Allergies Allergen ID Allergen Name Allergen Category Reaction Reaction Severity Criticality Documentation Date Start Date Code Code System Note Provider Name and Address Organization Details Recorded Time 6844 lisinopri l medicatio n angioedem a mild Not available 07/29/2017 45247 RxNorm REAL CHOI APN [address], [place], [address], [facility] 8 13:09:09 Medications Name Sig Start Date Stop Date Status Note LastModified by Organization Details LastModified Time Toprol XL 25 mg tablet,ex tended release Take 1 tablet every day by oral route. 11/04 completed Not Available Not Available Not Available cyanocoba shavonne (vit B-12) 2,500 mcg sublingua l tablet Place 1 tablet every day by sublingu al route in the morning. 02/10 completed Not Available Not Available Not Available azithromy juli 250 mg tablet TAKE 2 TABLETS BY MOUTH ON DAY 1 AND THEN TAKE 1 TABLET BY MOUTH ONCE A DAY ON DAY 2 THROUGH DAY 5 active Not Available Not Available No t Available glyburide 5 mg tablet TAKE 1 TABLET BY MOUTH ONCE DAILY active Not Available Not Available No t Available pravastat in 40 mg tablet TAKE 1 TABLET DAILY 06/13 completed -- change to Rosuvast atin 10 mg daily Not Available Not Available Not Available hydrocodo ne 5 mg-acetam inophen 325 mg tablet TAKE 1 TABLET BY MOUTH EVERY 6 HOURS NEEDED FOR PAIN 02/02 completed Not Available Not Available Not Available ondansetr on HCl 8 mg tablet 01/23 completed Not Available Not Available Not Available fluconazo le 200 mg tablet Take 1 tablet every other day by oral route. 02/02 completed Not Available Not Available Not Available Viagra 50 mg tablet 1 tab a day as needed only 02/10 completed Not Available Not Available Not Available acetamino phen 300 mg-codein e 30 mg tablet 01/23 completed Not Available Not Available Not Available amlodipin e 5 mg tablet TAKE 1 TABLET DAILY 02/02 completed Not Available Not Available Not Available Tamiflu 75 mg capsule Take 1 capsule twice a day by oral route. 07/12 completed Not Available Not Available Not Available peg-elect rolyte solution 420 gram oral solution 07/12 completed Not Available Not Available Not Available aspirin 81 mg tablet,de layed release TAKE 1 TABLET DAILY 2020 active Not Available Not Available Not Avai lable tramadol 50 mg tablet TAKE 1 TABLET BY MOUTH EVERY 6 HOURS NEEDED 06/13 completed Not Available Not Available Not Available oxycodone -acetamin ophen 5 mg-325 mg tablet TAKE 1 TO 2 TABLETS BY MOUTH EVERY 6 HOURS NEEDED FOR PAIN 02/02 completed Not Available Not Available Not Available hydrocort isone 2.5 % topical cream with perineal applicato r APPLY A THIN LAYER TO THE AFFECTED AREA(S) BY TOPICAL ROUTE 2-4 TIMESDAI LY 06/02 completed Not Available Not Available Not Available amlodipin e 10 mg tablet TAKE 1 TABLET DAILY active Not Available Not Available No t Available hydrocodo ne 7.5 mg-acetam inophen 325 mg tablet 01/23 completed Not Available Not Available Not Available cephalexi n 500 mg capsule 11/04 completed Not Available Not Available Not Available cyanocoba shavonne (vit B-12) 1,000 mcg/mL injection solution Inject 1 mL every month by subcutan eous route. 02/02 completed Not Available Not Available Not Available metformin 1,000 mg tablet TAKE 1 TABLET TWICE A DAY active Not Available Not Available No t Available lisinopri l 10 mg tablet 01/23 completed on 40mg Not Available Not Available Not Available promethaz ine 25 mg tablet 07/12 completed Not Available Not Available Not Available amoxicill in 250 mg capsule 01/23 completed Not Available Not Available Not Available Anusol-HC 25 mg rectal supposito ry one supp WI PRN 02/10 completed Not Available Not Available Not Available methylpre dnisolone 4 mg tablets in a dose pack TAKE BY MOUTH DIRECTED ON INSIDE OF PACKAGE active Not Available Not Available No t Available lisinopri l 40 mg tablet 1qd 07/30 completed angioede ma Not Available Not Available Not Available fluticaso ne propionat e 50 mcg/actua tion nasal spray,dionne pension 2 sprays each nostril once a day active Not Available Not Available No t Available metformin ER 500 mg tablet,ex tended release 24 hr Take 2 tablets twice a day by oral route. active Not Available Not Available No t Available lisinopri l 2.5 mg tablet 01/23 completed on 40mg Not Available Not Available Not Available cholecalc iferol (vitamin D3) 125 mcg (5,000 unit) capsule Take 1 capsule( s) every day by oral route. 2017 active Not Available Not Available Not Avai lable glipizide 5 mg tablet Take 1 tablet twice a day by oral route. 11/04 completed Not Available Not Available Not Available amoxicill in 875 mg-potass ium clavulana te 125 mg tablet Take 1 tablet every 12 hours by oral route. 02/26 completed Not Available Not Available Not Available Pneumovax -23 25 mcg/0.5 mL injection syringe 06/13 completed Not Available Not Available Not Available rosuvasta tin 10 mg tablet TAKE 1 TABLET DAILY active Not Available Not Available No t Available tadalafil 20 mg tablet TAKE 1 TABLET BY MOUTH ONCE DAILY NEEDED active Not Available Not Available No t Available sildenafi l (pulmonar y hypertens ion) 20 mg tablet 2-3 tabs once a day as needed only 02/10 completed Not Available Not Available Not Available ProAir HFA 90 mcg/actua tion aerosol inhaler 2 puffs up to 4 times a days as needed only; Must go to the [facility] if no relief after the 4th treatmen t. active Not Available Not Available No t Available Advair HFA 230 mcg-21 mcg/actua tion aerosol inhaler active Not Available Not Available Not Available Aerochamb er Plus Flow-Vu USE DIRECTED active Not Available Not Available No t Available Eclipse Syringe 3 mL 25 gauge x 1 02/02 completed Not Available Not Available Not Available Xigduo XR 5 mg-1,000 mg tablet,ex tended release 1 tab taken twice a day; stop the Metformi n. active Not Available Not Available No t Available Trelegy Ellipta 100 mcg-62.5 mcg-25 mcg powder for inhalatio n INHALE 1 PUFF ONCE DAILY active Not Available Not Available No t Available Shingrix (PF) 50 mcg/0.5 mL intramusc ular suspensio n, kit 06/13 completed Not Available Not Available Not Available Vitals Date Recorded Body height Body mass index (BMI) Body weight Heart rate Respiratory rate Body temperature Systolic blood pressure Diastolic blood pressure Provider Name and Address Organization Details Last Updated DateTime 0 186.69 cm 32.9 kg/m2 309030. 87 g 85 /min 16 /min 98 [degF] 148 mm[Hg] 87 mm[Hg] Lexi Dey on [facility] 0 16:10:15 Date Recorded Body height Respiratory rate Body mass index (BMI) Body weight Body temperature Heart rate Systolic blood pressure Diastolic blood pressure Provider Name and Address Organization Details Last Updated DateTime 0 186.69 cm 16 /min 31.5 kg/m2 642611. 35 g 98.2 [degF] 88 /min 132 mm[Hg] 84 mm[Hg] [facility] 0 10:45:29 Date Recorded Body height Body mass index (BMI) Body weight Body temperature Heart rate Respiratory rate Systolic blood pressure Diastolic blood pressure Provider Name and Address Organization Details Last Updated DateTime 0 186.69 cm 31.9 kg/m2 813618. 13 g 97.8 [degF] 99 /min 16 /min 125 mm[Hg] 89 mm[Hg] August Cecelia [facility] 0 09:43:25 Date Recorded Body height Body mass index (BMI) Body weight Body temperature Respiratory rate Heart rate Systolic blood pressure Diastolic blood pressure Provider Name and Address Organization Details Last Updated DateTime 0 186.69 cm 31.8 kg/m2 951574. 54 g 97.9 [degF] 16 /min 88 /min 137 mm[Hg] 89 mm[Hg] Abi Ibrahim [facility] 0 13:14:55 Date Recorded Body height Body mass index (BMI) Body weight Respiratory rate Body temperature Heart rate Systolic blood pressure Diastolic blood pressure Provider Name and Address Organization Details Last Updated DateTime 1 186.69 cm 32.3 kg/m2 301294. 7 g 16 /min 98.2 [degF] 99 /min 143 mm[Hg] 89 mm[Hg] [facility] 1 15:27:45 Social History Question Answer Notes LastModified by Organizat ion Details LastModified Time Tobacco Smoking Status Never Smoker Fidelia Alfordrex yee [facility] 01/23/2017 14:11:51 Do You Have An Advance Directive? No Information not available 01/23/2017 What Is Your Level Of Caffeine Consumption? Moderate Information not available 01/23/2017 How Much Tobacco Do You Chew? None Information not available 01/23/2017 What Is Your Code Status? Full Code Information not available 01/23/2017 In The 14 Days Before Symptom Onset, Have You Had Close Contact With A Laboratory-confir med COVID-19 While That Case Was Ill? No Information not available 10/14/2019 In The 14 Days Before Symptom Onset, Have You Had Close Contact With A Person Who Is Under Investigation For COVID-19 While That Person Was Ill? No Information not available 10/14/2019 Have You Been To An Area Known To Be High Risk For COVID-19? No Was COVID + 04/20/20 Information not available 06/13/2020 What Type Of Diet Are You Following? REGULAR Information not available 01/23/2017 Which Illicit Or Recreational Drugs Have You Used? None Information not available 01/23/2017 Marital Status Informatio n not available 01/23/2017 What Was The Date Of Your Most Recent Tobacco Screening? 06/13/2020 Information not available 06/13/2020 How Much Tobacco Do You Smoke? No Information not available 01/23/2017 How Many Years Have You Smoked Tobacco? 0 Information not available 01/23/2017 Sex: Unknown Functional Status Question Answer Note LastModified by Organizat ion Details LastModified Time What is your level of alcohol consumption? None Information not available 01/23/2017 Do you or have you ever used smokeless tobacco? 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 Never used electronic cigarettes Information not available 10/14/2019 What is your exercise level? None Information not available 01/23/2017 Mental Status None recorded. Family History Relationship Description Onset Age of this Age Resolved Age Notes LastModified by Organization Details LastModified Time Paternal Grandfather Family history of malignant neoplasm -- unknow n type cancer Not available 01/23/2017 16:00:39 Father Diabetes mellitus lcallison Not available 2016 14:11:31 Father Neoplasm of liver 65 67 Dx'd @ 65 y/o lcallison Not available 07/16/2018 09:40:20 Maternal Grandmother Myocardial infarction 82 82 -- of CA at 82 y/o Not available 01/23/2017 16:02:59 Maternal Uncle Myocardial infarction -- in his 60s of CA. Not available 01/23/2017 16:03:29 Medical History No medical history recorded. Immunizations Vaccine Type Date Status Note Provider Nam e and Address Organization Details Recorded Time pneumococcal polysaccharide PPV23 0 completed Chris Hernandez MD [address], [place], [address], [facility] 06/13/2020 15:52:29 zoster recombinant 0 completed Chris Hernandez MD [address], [place], [address], [facility] 06/13/2020 15:53:12 Past Encounters Encounter ID Performer Location Encounter Start Date Encounter Closed Date Diagnosis/Indication Diagnosis SNOMED-CT Code Diagnosis ICD10 Code Diagnosis Note [id number] Chris Hernandez MD [facility], [facility] [address] [place] [address] 01/23/2017 14:26:34 01/23/2017 16:42:58 Type 2 diabetes mellitus without complication 866848369 E11.9 Benign ess ential hypertension 7320587 I10 -- uncontroll ed bc he is out of BP med Hyperlipidemia 38174403 E78.5 Sarcoidosis 26886825 D86 .9 (lungs; dx'd in 2002) -- refer pt to Pulmonolog ist Dr Olmstead Body mass index 30+ - obesity 930095116 Z68.31 -- advised weight loss-- pt's BMI today is 31.5 (ideal is between 20-25) Active or passive immunization 107586110 Z23 Screening for malignant neoplasm of colon 105265713 Z12.11 Screening for malignant neoplasm of prostate 401806952 Z12.5 -- due on 04/15/17 Allergic rhinitis 065713 04 J30.9 Primary er ectile dysfunction 421316398 N52.9 [id number] Chris Hernandez MD [facility] [address] [place] [address] 02/19/2017 08:29:18 02/19/2017 09:17:16 Adult health examination 603971262 Z00.00 Type 2 evan betes mellitus without complication 155189939 E11.9 -- had not done labs yet; check lab(s) today 02/19/17 Benign ess ential hypertension 5719837 I10 -- uncontroll ed bc he is out of BP med-- had not done labs yet; check lab(s) today 02/19/17 Hyperlipidemia 65286014 E78.5 -- had not done labs yet; check lab(s) today 02/19/17 Sarcoidosis 23443771 D86 .9 (lungs; dx'd in 2002) -- refer pt to Pulmonolog ist Dr Olmstead Body mass index 30+ - obesity 832907135 Z68.31 -- advised weight loss-- pt's BMI today is 31.5 (ideal is between 20-25) Allergic rhinitis 751244 04 J30.9 Active or passive immunization 161287273 Z23 Screening for malignant neoplasm of colon 738559952 Z12.11 Screening for malignant neoplasm of prostate 424043354 Z12.5 -- due on 04/15/17 Primary er ectile dysfunction 610723461 N52.9 [id number] Chris Hernandez MD [facility], [facility] [address] [place] [address] 07/07/2017 16:59:37 07/07/2017 18:53:03 Influenza-like illness 75757476 B34.9 (fever, chill, dry cough, and bodyaches -- started at around 10 pm yesterday) Allergic rhinitis 399518 04 J30.9 Reactive a irway disease 3269446182 06 J45.909 Type 2 evan betes mellitus without complication 216358831 E11.9 -- had not done labs yet; check lab(s) today 02/19/17 Benign ess ential hypertension 0752730 I10 -- uncontroll ed bc he is out of BP med-- had not done labs yet; check lab(s) today 02/19/17 Hyperlipidemia 45449246 E78.5 -- had not done labs yet; check lab(s) today 02/19/17 Sarcoidosis 93254132 D86 .9 (lungs; dx'd in 2002) -- refer pt to Pulmonolog ist Dr Olmstead Body mass index 30+ - obesity 159353746 Z68.31 -- advised weight loss-- pt's BMI today is 31.5 (ideal is between 20-25) Active or passive immunization 096059636 Z23 -- had not had Flu shot as advised. Screening for malignant neoplasm of colon 229942509 Z12.11 -- Stool globin negative focal blood on 03/03/17-- The patient reports he had a colonoscop y done with gastroente rologist Dr. Nicolas on 06/27/17-- Patient reports 2 Adenomatou s polyps was found. Screening for malignant neoplasm of prostate 715272836 Z12.5 -- due on 04/15/17 Primary er ectile dysfunction 393213217 N52.9 [id number] REAL CHOI APN [facility] [address] [place] [address] 07/29/2017 12:26:17 07/29/2017 13:21:37 Angioedema 27497291 T78.3XXA stop lisinopril -----no medrol dose pack at this time -- will see if improvemen t in symptoms -if swelling worsens call the officeif tongue swells or difficulty breathing go to the ERBenadryl 25mg PRN as needed Hypertensive disorder 38 054949 I10 [id number] Chris Hernandez MD [facility] [address] [place] [address] 09/08/2017 12:13:27 09/08/2017 13:42:43 Abscess 440587732 L02.91 (right groin) -- see photo-- check STD today 09/08/17 Influenza- like illness 78730396 B34.9 (fever, chill, dry cough, and bodyaches -- resolved Allergic rhinitis 135891 04 J30.9 Reactive a irway disease 7409377981 06 J45.909 Type 2 evan betes mellitus without complication 071601057 E11.9 -- recheck lab(s) on 10/08/17 Benign ess ential hypertension 7265228 I10 -- uncontroll ed as pt reports he has stopped the Toprol x 1 week-- recheck lab(s) on 10/08/17 Hyperlipidemia 33951026 E78.5 -- recheck lab(s) on 10/08/17 Sarcoidosis 16331607 D86 .9 (lungs; dx'd in 2002) -- referred pt to Pulmonolog ist Dr Olmstead Body mass index 30+ - obesity 771721248 Z68.31 -- advised weight loss; Patient loss 2 # since his last visit-- pt's BMI today is 31.4 (ideal is between 20-25) Primary er ectile dysfunction 522046241 N52.9 Active or passive immunization 658286536 Z23 -- had not had Flu shot as advised. Screening for malignant neoplasm of colon 136192833 Z12.11 -- Stool negative focal blood on 03/03/17-- bc of multiple Adenomatou s polyps pt needs to f/u w/ Gastroente rologist a year from 06/27/17 Screening for malignant neoplasm of prostate 291964553 Z12.5 -- PSA level of 0.4 on 07/07/17 Fatigue 37604870 R53.83 -- check lab(s) on 10/08/17 [id number] Chris Hernandez MD [facility] [address] [place] [address] 02/18/2018 15:18:28 02/18/2018 16:52:46 Abscess 244727780 L02.91 (right groin) -- see photo-- resolved without residuals or recurrence . Fatigue 40530708 R53.83 -- stable without change; normal TFTs on 07/07/17 Type 2 evan betes mellitus without complication 241175305 E11.9 -- recheck lab(s) today 02/18/18 Reactive a irway disease 1055148608 06 J45.909 -- no sx today Benign ess ential hypertension 7330863 I10 -- uncontroll ed as pt reports he has stopped the Toprol x 1 week-- recheck lab(s) today 02/18/18 Hyperlipidemia 10381274 E78.5 -- recheck lab(s) today 02/18/18 Sarcoidosis 02876663 D86 .9 (lungs; dx'd in 2002) -- referred pt to Pulmonolog ist Dr Olmstead but pt has not made appt yet Body mass index 30+ - obesity 578258876 Z68.31 -- advised weight loss; Patient lost 1 # since his last visit-- pt's BMI today is 31.2 (ideal is between 20-25) Allergic rhinitis 016938 04 J30.9 Primary er ectile dysfunction 463597971 N52.9 Screening for malignant neoplasm of colon 510062417 Z12.11 -- Stool negative focal blood on 03/03/17-- bc of multiple Adenomatou s polyps pt needs to f/u w/ Gastroente rologist a year from 06/27/17 Screening for malignant neoplasm of prostate 986433512 Z12.5 -- PSA level of 0.4 on 07/07/17 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 [id number] Chris Hernandez MD [facility] [employer] [facility] [address] [place] [address] 07/16/2018 08:58:39 07/16/2018 10:28:03 Allergy 110071220 T78.40XA w/ rhinitis -- referred pt to [facility] Jose Burton but pt has not made appt yet Sarcoidosis 38210593 D86 .9 (lungs; dx'd in 2002) -- re-referre d pt to Pulmonolog ist Dr Olmstead but pt has not made appt yet. Type 2 evan betes mellitus without complication 947906072 E11.9 -- Referred pt for diabetic education & nutritiona l counseling but pt has not made appt yet-- recheck lab(s) on 10/13/18 Reactive a irway disease 5704447665 06 J45.909 -- no sx today Fatigue 22687904 R53.83 -- stable without change; normal TFTs on 07/07/17 Hyperlipidemia 30306916 E78.5 -- recheck lab(s) on 10/13/18 Congenital pes planus 23 768298 Q66.50 -- sees Dr Patrice Torres Herpes sim plex type 1 infection 816568553 B00.9 -- pt counseled Body mass index 30+ - obesity 267696551 Z68.32 -- advised weight loss; Patient lost 1 # since his last visit-- pt's BMI today is 32 (ideal is between 20-25) Allergic rhinitis 331067 04 J30.9 Primary er ectile dysfunction 290960235 N52.9 Immunization refused 275 335114 Z28.20 -- pt counseled Screening for malignant neoplasm of colon 404108077 Z12.11 -- Stool negative focal blood on 03/03/17-- bc of multiple Adenomatou s polyps pt needs to f/u w/ Gastroente rologist a year from 06/27/17 Screening for malignant neoplasm of prostate 339876568 Z12.5 -- PSA level of 0.4 on 07/07/17 Benign ess ential hypertension 8344779 I10 -- uncontroll ed as pt reports he forgot to take his med yesterday- - recheck lab(s) on 10/13/18 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 deficiency (non anemic) 84100423 E53.8 -- will start Vit B12 shot weekly x 3 weeks [id number] REAL CHOI APN [facility] [address] [place] [address] 11/04/2018 09:28:51 11/04/2018 10:54:01 Hematochezia 585822309 K62.5 last C scope 07/2017 - 3 days of painful rectum - BRBPR (with wiping) Type 2 evan betes mellitus without complication 000292511 E11.9 -- Referred pt for diabetic education & nutritiona l counseling but pt has not made appt yet -- A1C 8.0 07/10/18 -- has not had glipizide in 2 years Benign ess ential hypertension 7678203 I10 EKG 07/2018 stopped toprol on own - states made tired Hyperlipidemia 36182239 E78.5 LDL 76 ---- 07/10/18 Reactive a irway disease 8441666247 06 J45.909 -- no sx today Allergy 950408541 T78.40 XA w/ rhinitis -- referred pt to [facility] Jose Burton but pt has not made appt yet Sarcoidosis 33203258 D86 .9 (lungs; dx'd in 2002) -- re-referre d pt to Pulmonolog ist Dr Olmstead but pt has not made appt yet. 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 deficiency (non anemic) 42884242 E53.8 -- prefers injections over SL tablets Fatigue 87991866 R53.83 b12 low home sleep study not performed Congenital pes planus 23 951434 Q66.50 -- sees Dr Patrice Torres Herpes sim plex type 1 infection 498542602 B00.9 -- pt counseled Body mass index 30+ - obesity 075060343 Z68.32 Allergic rhinitis 297125 04 J30.9 Primary er ectile dysfunction 356619156 N52.9 Immunization refused 275 149183 Z28.20 -- pt counseled Screening for malignant neoplasm of colon 075255539 Z12.11 -- Stool negative focal blood on 03/03/17-- bc of multiple Adenomatou s polyps pt needs to f/u w/ Gastroente rologist a year from 06/27/17 Screening for malignant neoplasm of prostate 138622621 Z12.5 -- PSA level of 0.4 on 07/07/17 At [facility] ed risk for cardiovascular event 445048260 Z91.89 pt interested in stress test due to risk no symptoms at present [id number] REAL CHOI APN [facility] [address] [place] [address] 02/10/2019 15:39:38 02/10/2019 16:15:04 Type 2 diabetes mellitus without complication 679856974 E11.9 -- Referred pt for diabetic education & nutritiona l counseling but pt has not made appt yet -- A1C 6.5 11/04/18 Benign ess ential hypertension 3901165 I10 EKG 07/2018 stable Hyperlipidemia 63495200 E78.5 LDL 84 --- 11/04/18 Reactive a irway disease 2036290277 06 J45.909 -- no sx today Allergy 291298679 T78.40 XA w/ rhinitis -- referred pt to [facility] Jose Burton but pt has not made appt yet Sarcoidosis 86985739 D86 .9 (lungs; dx'd in 2002) -- re-referre d pt to Pulmonolog ist Dr Olmstead but pt has not made appt yet. 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 deficiency (non anemic) 44207301 E53.8 -- prefers injections over SL tablets-- last b12 11/04/18 - 551 Fatigue 61048417 R53.83 b12 low home sleep study not performed Congenital pes planus 23 949441 Q66.50 -- sees Dr Patrice Torres Herpes sim plex type 1 infection 938800128 B00.9 -- pt counseled Body mass index 30+ - obesity 937384995 Z68.32 Allergic rhinitis 537096 04 J30.9 Primary er ectile dysfunction 064960041 N52.9 Immunization refused 275 569813 Z28.20 -- pt counseled Screening for malignant neoplasm of colon 419708003 Z12.11 -- Stool negative focal blood on 11/10/18-- bc of multiple Adenomatou s polyps pt needs to f/u w/ Gastroente rologist a year from 06/27/17 Screening for malignant neoplasm of prostate 317516331 Z12.5 -- PSA level of 0.4 on 11/04/18 At [facility] ed risk for cardiovascular event 668348255 Z91.89 pt interested in stress test due to risk no symptoms at present [id number] Chris Hernandez MD [facility] [address] [place] [address] 06/02/2019 14:32:33 06/02/2019 16:40:49 Type 2 diabetes mellitus without complication 649768516 E11.9 -- Referred pt for diabetic education & nutritiona l counseling but pt has not made appt yet -- A1C 6.5 11/04/18 -- recheck lab(s) today 06/02/19 Benign ess ential hypertension 8855706 I10 EKG 07/2018 -- uncontroll ed BP; will increase amlodipine from 5 mg to --> 10 mg qd Hyperlipidemia 08082327 E78.5 LDL 84 --- 11/04/18 Reactive a irway disease 0169256356 06 J45.909 -- no sx today Allergy 282062943 T78.40 XA w/ rhinitis -- referred pt to [facility] Jose Burton but pt has not made appt yet Sarcoidosis 76369153 D86 .9 (lungs; dx'd in 2002) -- re-referre d pt to Pulmonolog ist Dr Olmstead but pt has not made appt yet. 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 deficiency (non anemic) 51794825 E53.8 -- prefers injections over SL tablets-- last b12 11/04/18 - 551 Fatigue 35074533 R53.83 (b12 low) -- ordered home sleep study not done Congenital pes planus 23 873467 Q66.50 -- sees Dr Patrice Torres Herpes sim plex type 1 infection 561280612 B00.9 -- pt counseled Body mass index 30+ - obesity 075734379 Z68.32 -- advised weight loss; pt gained 3 # since his last visit-- pt's BMI today is 32.9 (ideal is between 20-25) Allergic rhinitis 452253 04 J30.9 Primary er ectile dysfunction 591318726 N52.9 Immunization refused 275 520728 Z28.20 -- pt counseled Screening for malignant neoplasm of colon 049041252 Z12.11 -- Stool negative focal blood on 11/10/18-- bc of multiple Adenomatou s polyps pt needs to f/u w/ Gastroente rologist a year from 06/27/17 Screening for malignant neoplasm of prostate 863564796 Z12.5 -- PSA level of 0.4 on 11/04/18 [id number] Chris Hernandez MD [facility], [facility] [address] [place] [address] 10/14/2019 09:59:57 10/14/2019 11:50:32 Benign essential hypertension 2779340 I10 EKG 07/2018 -- uncontroll ed BP; will increase amlodipine from 5 mg to --> 10 mg qd Type 2 evan betes mellitus without complication 712091456 E11.9 -- Referred pt for diabetic education & nutritiona l counseling but pt has not made appt yet -- recheck lab(s) today 10/14/19 Hyperlipidemia 77224478 E78.5 -- recheck lab(s) today 10/14/19 Hepatitis C screening 41 9505415 Z11.59 -- Hep C negative on 09/08/17 Active or passive immunization 356410949 Z23 -- had not had Flu shot as advised. Right rota tor cuff syndrome 0449231411 62530 M75.101 -- will clear for surgery if diabetes is not horribly uncontroll ed. [id number] Chris Hernandez MD [facility] [address] [place] [address] 01/18/2020 09:05:58 01/18/2020 10:55:57 Adult health examination 488905300 Z00.00 Right rota tor cuff syndrome 0644660785 42019 M75.101 -- will clear for surgery if diabetes is not horribly uncontroll ed. Benign ess ential hypertension 0334823 I10 EKG 07/2018 -- uncontroll ed BP; will increase amlodipine from 5 mg to --> 10 mg qd Type 2 evan betes mellitus without complication 070510525 E11.9 -- Referred pt for diabetic education & nutritiona l counseling but pt has not made appt yet -- recheck lab(s) today Hyperlipidemia 22197758 E78.5 -- recheck lab(s) today 10/14/19 Hepatitis C screening 41 0745550 Z11.59 -- Hep C negative on 09/08/17 Active or passive immunization 143798141 Z23 -- had not had Flu shot as advised. Screening for malignant neoplasm of colon 755625578 Z12.11 -- Stool negative focal blood on 11/10/18-- bc of multiple Adenomatou s polyps pt needs to f/u w/ Gastroente rologist a year from 06/27/17 Screening for malignant neoplasm of prostate 643275722 Z12.5 -- PSA level of 0.4 on 11/04/18 Body mass index 30+ - obesity 117489386 Z68.39 -- advised weight loss; pt gained 3 # since his last visit-- pt's BMI today is 31.9 (ideal is between 20-25) Expiratory wheezing 9763 007 R06.2 -- usually w/ weather changes. Primary er ectile dysfunction 672708295 N52.9 [id number] Chris Hernandez MD [facility] [address] [place] [address] 04/18/2020 11:58:09 04/18/2020 13:51:00 Syncope 171100868 R55 -- pt reported the ER provider told him that his fainting was from dehydratio n as he was not drinking enough fluids Type 2 evan betes mellitus without complication 297389136 E11.9 -- Referred pt for diabetic education & nutritiona l counseling but pt has not made appt yet -- recheck lab(s) today Essential hypertension 97495726 I10 EKG 07/2018 -- uncontroll ed BP; will increase amlodipine from 5 mg to --> 10 mg qd Hyperlipidemia 74123461 E78.5 -- recheck lab(s) today 10/14/19 Body mass index 30+ - obesity 672687888 Z68.31 -- advised weight loss; pt lost 1 # since his last visit-- pt's BMI today is 31.8 (ideal is between 20-25) Active or passive immunization 844712962 Z23 -- had not had Flu shot as advised. Suspected COVID-19 24483 4004 Z03.89 -- pt counseled to get tested for covid today & quanrantin e until results return negative [id number] Chris Hernandez MD [facility] [address] [place] [address] 06/13/2020 15:11:27 06/13/2020 16:20:43 Syncope 990771639 R55 (sounded vasovagal) -- had near syncope when he laughs too hard or when he stretches his body too hard. Type 2 evan betes mellitus without complication 523952811 E11.9 -- Referred pt for diabetic education & nutritiona l counseling but pt has not made appt yet -- recheck lab(s) 08/15/20 Essential hypertension 68045929 I10 -- EKG done 10/14/19 -- uncontroll ed BP; will increase amlodipine from 5 mg to --> 10 mg qd Hyperlipidemia 86152156 E78.5 -- recheck lab(s) 08/15/20 Body mass index 30+ - obesity 348581498 Z68.31 -- advised weight loss; pt lost 1 # since his last visit-- pt's BMI today is 31.8 (ideal is between 20-25) Active or passive immunization 425422442 Z23 -- had not had Flu shot as advised. COVID-19 744125819 U07.1 -- tested positive for Covid on 04/18/21 Bronchospasm 7913247 J98 .01 -- spirometry done on 01/18/20 Primary er ectile dysfunction 923169593 N52.9 Health Concerns Section Related Observation LastModified by Organization Detai ls LastModified Time None Recorded Concern Status LastModified by Organization Details LastModified Time None Recorded Advance Directives Directive N: Payers Encounter Date Sequence Insurance Name Policy Number Policy Leyva Covered Member ID Leyva Member ID Guarantor Name 06/02/2019 1 [place] [id number] Caleb Lynn [id number] Caleb Lynn 10/14/2019 1 [place] [id number] Caleb Lynn [id number] Caleb Lynn 01/18/2020 1 [place] [id number] Caleb Lynn [id number] Caleb Lynn 04/18/2020 1 [place] [id number] Caleb Lynn [id number] Caleb Lynn 06/13/2020 1 [place] [id number] Caleb Lynn [id number] Caleb Lynn Notes Date Note Type Note Provider Name and Address Organization Details Recorded Time 06/02/2019 text/html Patient denies a ny headache/chest discomfort or pain/diaphoresis/b reathing problems/nausea/vo miting/any angina equivalent symptoms/visual changes Chris Hernandez MD [address] [place] [address] [address], [place], [address], [facility] 06/02/2019 16:34:15 10/14/2019 text/html Surgery on (w/ Dr Som Walker) for L shoulder tendon impingement @ [facility]. Fax number [phone] here for medical clearance. Pt also passed nuclear stress test w/ Physical Security Specialist Dr Leal in Apr 2019. Pt has no c/o except his left shoulder joint. Patient denies any f/c, headache, visual changes/sx, jaw or neck discomfort, chest pain, diaphoresis, breathing symptoms, any angina equivalent symptoms, etc. Pt also denies any exposure to Covid-19 or in contact w/ anyone w/ covid-19. Pt also denies f/c, sorethroat, cough, n/v, SOB/chest tightness, loss of sense of smell, loss of taste, loose stool/diarrhea, body aches. Chris Hernandez MD [address] [facility] [address], [place], [address], [facility] 10/14/2019 11:50:31 01/18/2020 text/html Pt comes in for DM, BP, & cholesterol managment. Pt has no c/o Patient denies any jaw or neck discomfort, left arm pain/left arm discomfort, chest discomfort/pain, diaphoresis, breathing symptoms/chest tightness, indigestion sx, n/v, any angina equivalent symptoms, etc. Chris Hernandez MD [address] [facility] [address], [place], [address], [facility] 01/18/2020 10:51:50 04/18/2020 text/html Pt feeling sick last Friday (bodyaches), slight fever, & chills. He had cough w/ white phlegm, and chest tightness (resolved). He had nausea before he fainted on Friday AMPt denies any exposure to Covid-19. Pt also denies fatigue, headaches, sneezing/runny nose, sore-throat, SOB, alteration of smell/taste, abdominal discomfort/pain, vomitting, loose stool/diarrhea. Chris Hernandez MD [address] [facility] [address], [place], [address], [facility] 04/18/2020 13:41:27 06/13/2020 text/html Pt comes in for nearly syncope, DM, BP, & cholesterol managemenet. He also needs refills. Otherwise, he feels well and has no c/o Patient denies any jaw or neck discomfort, left arm pain/left arm discomfort, chest discomfort/pain, diaphoresis, breathing symptoms/chest tightness, indigestion sx, n/v, any angina equivalent symptoms, etc. Chris Hernandez MD [address] [place] [address] [address], [place], [address], [facility] 06/13/2020 16:10:43
--- OUTSIDE RECORDS SUMMARY | 2024-09-25 11:45 | XMS_ITS | Continuity of Care Document ---
Author Organization [facility] Address [address] [place] [address] Phone Care Team Providers Care Turbine Mechanic Name Role Phone Edward CRAWFORD, OTR/LTania Unavailable Unavail able Procedures Procedure Date Orthotic Mgmt and Training Short Opponens Hand based Advance Directives Directive Yes / No Effective Date File Name No Information Encounters Encounter Description Practice Location Reason(s) For Visit Diagnoses Date Provider Providers Copied on Encounter [facility], [address], [place], [place], [id number], [place] tel:[phone] [place] Traumatic rupture of right radial collateral ligament, subsPain in right handEffusion, right handStiffness of right hand, not elsewhere classifiedOth symptoms and signs involving the musculoskeletal system [address] Edward Marin. [address], [address], [place], [address], [place]. tel:[phone] Referring Provider: Abundio Frank, [address], [place], [address]. tel:[phone] Family History Family Member Type Diagnosis Age At Onset No Information Payers Payer name Insurance type Covered alliance party ID Authoriza tion(s) [facility]sis [facility] [id number] [employer] - [employer] SP [id number] Social History Type Description Quantity Date Captured Comments Sex Male Smoking Status No Information Chief Complaint And Reason For Visit No Information Reason For Referral Reason For Referral No Information History Of Present Illness Encounter Date Complaint History Of Prese nt Illness No Information Functional Status Date Functional Assessmen t No Information Instructions Date Instruction Additional Infor mation No Information Assessments Type Assessment Date No Information Patient Care Teams Name Effective Dates (start - stop) Status Members No Information
[2024-09-25 12:32] VITALS: BP 142/100; PULSE 90; RESP 16; TEMP 36.8; O2SAT 100
--- OUTSIDE RECORDS SUMMARY | 2024-09-25 12:44 | XMS_ITS | Encounter Summary ---
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
--- OUTSIDE RECORDS SUMMARY | 2024-09-25 12:44 | XMS_ITS | Referral Summary ---
Author Organization [facility] Address [address] [place] [address] Care Team Providers Care Cattle Tester Name Role Phone Svitlana Yee MD Primary Care Provider Allergies Active Allergy Reactions Criticality Noted Date Comments Lisinopril Angioedema,Other (Se e comments),Swollen tongue High 04/14/2020 Swelling Lisinopril-Hydrochloro thiazide Angioedema High 08/07/2020 Mouth swelling, coughing, Medications [id number] E-[id number] in (Centrum Silver Men) 300-600-300 mcg tablet [...] 1 tablet (3 mg total) by mouth early education teacher before breakfast 90 tablet 1 4 Active [...] (12/19/2021): Records request from Dr.Vasantha Boudreaux in [place], [place]; if Caleb needs another colonoscopy he [...] on file Legal Sex Male 10:55 PM PLATE MOLDER Gender Identity Male 12/19/2020 2:54 PM CDT Sexual Orientation Not on file Last Filed Vital Signs Vital Sign Reading Time Taken Comments Blood Pressure 131/84 03/12/2024 10:44 AM PLATE MOLDER Pulse 86 03/12/2024 10:44 AM PLATE MOLDER Temperature 36.7 C (98 F) 03/12/2024 10:44 AM PLATE MOLDER Respiratory Rate - - Oxygen Saturation 97% 03/13/2023 10:54 AM PLATE MOLDER Inhaled Oxygen Concentration - - Weight 108 kg (238 lb) 03/12/2024 10:44 AM PLATE MOLDER Height 186.7 cm (6' 1.5 ) 03/12/2024 10:44 AM CS T Body Mass Index 30.97 03/12/2024 10:44 AM PLATE MOLDER Plan of Treatment Scheduled Procedures Name Priority Associated Diagnoses Date/Ti me COLONOSCOPY Colon cancer screening Procedures Procedure Name Priority Date/Time Associated Diagnosis Comments EGFR Routine 03/12/2024 11:33 AM PLATE MOLDER Controlled diabetes mellitus type 2 with complications, unspecified whether jail insulin use (HCC) HEMOGLOBIN A1C Routine 03/12/2024 11:33 AM PLATE MOLDER Controlled diabetes mellitus type 2 with complications, unspecified whether jail insulin use (HCC) LIPID PANEL Routine 03/12/2024 11:33 AM PLATE MOLDER Controlled diabetes mellitus type 2 with complications, unspecified whether meterman insulin use (HCC) PSA SCREEN Routine 03/12/2024 11:33 AM PLATE MOLDER Health care maintenance ALBUMIN CREATININE RATIO, URINE Routine 03/13/2023 12:20 PM PLATE MOLDER Hypertension associated with diabetes (HCC) HEPATITIS C ANTIBODY Routine 12/21/2020 2:15 PM CDT Need for hepatitis C screening test from Last 3 Months or Most Recently Relevant to Health Maintenance Results * eGFR (03/12/2024 11:33 AM PLATE MOLDER) eGFR >90 >=60 mL/min/1. 73 m2 Comment: [...] reviewed 2021. Blood 03/12/2024 11:3 3 AM PLATE MOLDER 03/12/2024 11:53 AM PLATE MOLDER us Svitlana Yee MD LAB BLOOD ORDERABLES F inal Result [facility] [place] [address] * PSA screen (03/12/2024 11:33 AM PLATE MOLDER) PSA-Total 0.44 <=3.90 ng/mL Comment: Interpretive Data [...] revised 21. Blood 03/12/2024 11:3 3 AM PLATE MOLDER 03/12/2024 11:53 AM PLATE MOLDER Svitlana Yee MD LAB BLOOD ORDERABLES F inal Result Performing Organization Address [facility] de Phone Number [facility] [place] [address] * (ABNORMAL) Hemoglobin A1c (03/12/2024 11:33 AM PLATE MOLDER) Hgb A1C 8.4(H) 4.0 - 5.6 % Estimated Average Glucose 194 mg/dL [facility] Comment: The ADA recommends reporting an estimated Average Glucose (eAG) with all Hemoglobin A1c results using the equation derived from a study of 507 normal and diabetic adults. Minority populations were underrepresented and children were not included. (Diabetes Care 2020; 43(S1): S66-S76). The eAG is not equivalent to a fasting glucose. Blood 03/12/2024 11:3 3 AM PLATE MOLDER 03/12/2024 11:54 AM PLATE MOLDER Svitlana Yee MD LAB BLOOD ORDERABLES F inal Result Performing Organization Address [facility] de Phone Number [facility] [place] [address] * Lipid panel (03/12/2024 11:33 AM PLATE MOLDER) Cholesterol 127 30 - 199 mg/dL Comment: [...] revised on 2017. Triglycerides 76 <=149 mg/dL [facility] Comment: Interpretive Data Ages < or [...] revised on 2017. HDL 40 >=40 mg/dL [facility] Comment: Interpretive Data Ages < or [...] 2017. LDL, calculated 72 <=129 mg/dL [facility] Comment: Interpretive Data Ages < or [...] revised on 2023. Non-HDL Cholesterol 87 mg/dL [facility] Comment: Interpretive Data Ages < or [...] last revised on 2017. Chol/HDL ratio 3 [facility] Blood 03/12/2024 11:3 3 AM PLATE MOLDER 03/12/2024 11:53 AM PLATE MOLDER us Svitlana Yee MD LAB BLOOD ORDERABLES F inal Result [facility] Department [place] [address] * (ABNORMAL) Albumin Creatinine Ratio, Urine (03/13/2023 12:20 PM PLATE MOLDER) Albumin Ur 856.0 mg/L [facility] Comment: Interpretive Data No reference range established. Current interpretive data was last revised 2018. Creatinine Ur 307.3 mg/dL [facility] Comment: Interpretive Data No reference range established. Current interpretive data was last revised 2018. Albumin Creatinine Ratio, Ur 279(H) 1 - 29 mg/g [facility] Urine 03/13/2023 12:2 0 PM PLATE MOLDER 03/13/2023 12:56 PM PLATE MOLDER Svitlana Yee MD LAB URINE ORDERABLES F inal Result [facility] Department [place] [address] * Hepatitis C antibody (12/21/2020 2:15 PM [...] last revised on 2019. Testing performed by: [facility], [address] [place] [address]., [address] Blood 12/21/2020 2:15 PM CDT 12/21/2020 6:04 PM CDT Clemente Harding MD LAB MICROBIOLOGY - GENER AL ORDERABLES Final Result Performing Organization Address City/[facility] de Phone Number [facility] [address] [facility]. Department [place] [address] from Last 3 Months or Most Recently Relevant to Health Maintenance Insurance [employer] [facility] [email or web address] [place] CHO[place] [email or web address] [place] [place] Care Teams Cattle Tester Relationship Specialty Start Date End Date Svitlana Yee MD PCP - General Internal Medicine 01/24/23
--- OUTSIDE RECORDS SUMMARY | 2024-09-25 12:44 | XMS_ITS | Clinical Summary ---
Author Organization [facility] Address [address] [place] [address] Care Team Providers Care Impregnation Operator Name Role Phone Svitlana Yee MD Primary Care Provider Allergies Active Allergy Reactions Criticality Noted Date Comments Lisinopril Angioedema,Other (Se e comments),Swollen tongue High 04/14/2020 Swelling Lisinopril-Hydrochloro thiazide Angioedema High 08/07/2020 Mouth swelling, coughing, Medications nzfiblnq-rny-Y J-sjbeoms-hsol in (Centrum Silver Men) 300-600-300 mcg tablet [...] 1 tablet (3 mg total) by mouth stranding machine operator before breakfast 90 tablet 1 4 Active [...] (12/19/2021): Records request from Dr.Vasantha Boudreaux in [place], [place]; if Caleb needs another colonoscopy he [...] on file Legal Sex Male 10:55 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 Gender Identity Male 12/19/2020 2:54 PM CDT Sexual Orientation Not on file Obstetrics History Last Filed Vital Signs Vital Sign Reading Time Taken Comments Blood Pressure 131/84 03/12/2024 10:44 AM 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 Pulse 86 03/12/2024 10:44 AM 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 Temperature 36.7 C (98 F) 03/12/2024 10:44 AM 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 Respiratory Rate - - Oxygen Saturation 97% 03/13/2023 10:54 AM 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 Inhaled Oxygen Concentration - - Weight 108 kg (238 lb) 03/12/2024 10:44 AM 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 Height 186.7 cm (6' 1.5 ) 03/12/2024 10:44 AM CS T Body Mass Index 30.97 03/12/2024 10:44 AM 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 Plan of Treatment Scheduled Procedures Name Priority [...] Diagnosis Comments EGFR Routine 03/12/2024 11:33 AM 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 Controlled diabetes mellitus type 2 with complications, unspecified whether termite treater insulin use (HCC) HEMOGLOBIN A1C Routine 03/12/2024 11:33 AM 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 Controlled diabetes mellitus type 2 with complications, unspecified whether fpc insulin use (HCC) LIPID PANEL Routine 03/12/2024 11:33 AM 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 Controlled diabetes mellitus type 2 with complications, unspecified whether termite treater insulin use (HCC) PSA SCREEN Routine 03/12/2024 11:33 AM 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 Health care maintenance ALBUMIN CREATININE RATIO, URINE Routine 03/13/2023 12:20 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 Hypertension associated with diabetes (HCC) HEPATITIS C ANTIBODY Routine 12/21/2020 2:15 PM CDT Need for hepatitis C screening test from Last 3 Months or Most Recently Relevant to Health Maintenance Results * eGFR (03/12/2024 11:33 AM 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) eGFR >90 >=60 mL/min/1. 73 m2 Comment: [...] reviewed 2021. Blood 03/12/2024 11:3 3 AM 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 03/12/2024 11:53 AM 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 us Svitlana Yee MD LAB BLOOD ORDERABLES F inal Result [facility] Department [place] [address] * PSA screen (03/12/2024 11:33 AM 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) PSA-Total 0.44 <=3.90 ng/mL Comment: Interpretive Data [...] revised 21. Blood 03/12/2024 11:3 3 AM 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 03/12/2024 11:53 AM 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 Svitlana Yee MD LAB BLOOD ORDERABLES F inal Result Performing Organization Address [facility] Co de Phone Number [place] [address] * (ABNORMAL) Hemoglobin A1c (03/12/2024 11:33 AM 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) [facility] Hgb A1C 8.4(H) 4.0 - 5.6 % Estimated Average Glucose 194 mg/dL [facility] Comment: The ADA recommends reporting an estimated Average Glucose (eAG) with all Hemoglobin A1c results using the equation derived from a study of 507 normal and diabetic adults. Minority populations were underrepresented and children were not included. (Diabetes Care 2020; 43(S1): S66-S76). The eAG is not equivalent to a fasting glucose. Blood 03/12/2024 11:3 3 AM 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 03/12/2024 11:54 AM 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 Svitlana Yee MD LAB BLOOD ORDERABLES F inal Result Performing Organization Address City/[facility]/ZIP Co de Phone Number [facility] [place] [address] * Lipid panel (03/12/2024 11:33 AM 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) Pathologist [facility] Cholesterol 127 30 - 199 mg/dL Comment: [...] revised on 2017. Triglycerides 76 <=149 mg/dL [facility] Comment: Interpretive Data Ages < or = [...] revised on 2017. HDL 40 >=40 mg/dL [facility] Comment: Interpretive Data Ages < or = [...] on 2017. LDL, calculated 72 <=129 mg/dL [facility] Comment: Interpretive Data Ages < or = [...] on 2023. Non-HDL Cholesterol 87 mg/dL [facility] Comment: Interpretive Data Ages < or [...] last revised on 2017. Chol/HDL ratio 3 [facility] Blood 03/12/2024 11:3 3 AM 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 03/12/2024 11:53 AM 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 Svitlana Yee MD LAB BLOOD ORDERABLES F inal Result [facility] Department [place] [address] * (ABNORMAL) Albumin Creatinine Ratio, Urine (03/13/2023 12:20 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) Albumin Ur 856.0 mg/L [facility] Comment: Interpretive Data No reference range established. Current interpretive data was last revised 2018. Creatinine Ur 307.3 mg/dL [facility] Comment: Interpretive Data No reference range established. Current interpretive data was last revised 2018. Albumin Creatinine Ratio, Ur 279(H) 1 - 29 mg/g [facility] Urine 03/13/2023 12:2 0 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 03/13/2023 12:56 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 Svitlana Yee MD LAB URINE ORDERABLES F inal Result Performing Organization Address City/[facility]/ZIP Co de Phone Number [facility] Department [place] [address] * Hepatitis C antibody (12/21/2020 2:15 PM CDT) Hep C Ab Nonreactive Nonreactive [facility] Comment: Interpretive Data Nonreactive: Antibodies to HCV [...] last revised on 2019. Testing performed by: [facility], [facility], [place]., [address] Blood 12/21/2020 2:15 PM CDT 12/21/2020 6:04 PM CDT Clemente Harding MD LAB MICROBIOLOGY - GENER AL ORDERABLES Final Result Performing Organization Address [facility] Co de Phone Number [facility] [address] [facility]. Department [place] [address] from Last 3 Months or Most Recently Relevant to Health Maintenance Insurance [employer] [facility] BLUE ACCESS CHOICE [place] Care Teams Impregnation Operator Relationship Specialty Start Date End Date Svitlana Yee MD PCP - General Internal Medicine 01/24/23
--- OUTSIDE RECORDS SUMMARY | 2024-09-25 12:44 | XMS_ITS | Continuity of Care Document ---
Author Organization [facility] Address [address] [place] [address] Phone Care Team Providers Care See Wheeler Name Role Phone Edward CRAWFORD, OTR/LTania Unavailable Unavail able Procedures Procedure Date Orthotic Mgmt and Training Short Opponens Hand based Advance Directives Directive Yes / No Effective Date File Name No Information Encounters Encounter Description Practice Location Reason(s) For Visit Diagnoses Date Provider Providers Copied on Encounter [facility], [address], [place], [place], [address], [place] tel:[phone] [place] Traumatic rupture of right radial collateral ligament, subsPain in right handEffusion, right handStiffness of right hand, not elsewhere classifiedOth symptoms and signs involving the musculoskeletal system 8 Edward Marin. [address], [address], [place], [address], [place]. tel:[phone] Referring Provider: Abundio Frank, [address], [place], [address]. tel:[phone] Family History Family Member Type Diagnosis Age At Onset No Information Payers Payer name Insurance type Covered green party ID Authoriza tion(s) [facility] [id number] One [employer] - Align SP [id number] Social History Type Description Quantity Date Captured [...]
--- OUTSIDE RECORDS SUMMARY | 2024-09-25 12:44 | XMS_ITS | Clinical Summary ---
Author Organization [facility] Address [address] [place] [address] Care Team Providers Care Accounting Administrative Assistant Name Role Phone Chris Hernandez MD Primary Care Provider [phone] Source Comments [facility],non-owned Affiliates and Associated Physician Practices is amultiple site organization consisting of ambulatory clinics and hospital sitesin [place], [place], [place] and [place]. This disclosure is being madepursuant to the Care Everywhere program and may not contain all information available regarding this patient. 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 Potassium 4.0 3.6 - 5.0 mmol/L [facility] Chloride 103 98 - 107 mmol/L [facility] BUN 15 9 - 20 mg/dl [facility] Creatinine 0.93 0.66 - 1.25 mg/dl [facility] Glucose 76 75 - 110 mg/dl [facility] Calcium 9.6 8.4 - 10.2 mg/dl [facility] Alkaline Phosphatase 58 38 - 126 U/L [facility] AST 34 14 - 50 U/L [facility] Bilirubin Total 0.9 0.2 - 1.3 mg/dl [facility] Protein Total 8.5(H) 6.3 - 8.2 gm/dl [facility] Albumin 4.6 3.9 - 5.0 gm/dl [facility] CO2 30 22 - 30 mmol/L [facility] ALT 33 21 - 72 U/L [facility] eGFR by MDRD 108 97 - 137 mL/min/1.[address] [facility] Comment eGFR [facility] Comment: The eGFR does not apply to patients who are younger than 18 or older than 70. BLOOD SPECIMEN / Unknown 12/29/2008 12:55 PM CDT Gloria Lowry MD LAB - CHEMISTRY ORDERAB LES Final Result [facility] [address] [place] [address] from Last 3 Months or Most Recently Relevant to Health Maintenance Insurance ANTHEM ANTHEM Care Teams Accounting Administrative Assistant Relationship Specialty Start Date End Date Chris Hernandez MD [address] [place] [address] [address] [place] [id number] PCP - General 08/02/20
--- OUTSIDE RECORDS SUMMARY | 2024-09-25 12:44 | XMS_ITS | Continuity of Care Document ---
Author Organization [facility] Address [address] [place] [address] Phone Care Team Providers Care Configuration Manager Name Role Phone Rebecca Guajardo MD Unavailable [...] hours as needed 50 MG - Active [place] 5 mg-325 mg tablet take 1 tablet [...] OFFICE/OUTPA TIENT VISIT EST [facility], [address], [place], [address], [place] tel:[phone] [facility] S/P arthroscopy of left shoulder 1 Casandra Fernandez. [address], [place], [place], [address]. tel:[phone] OFFICE/OUTPA TIENT VISIT EST [facility], [address], [place], [address], [place] tel:[phone] [facility] S/P arthroscopy of left shoulder 1 Casandra Fernandez. [address], [place], [place], [address]. tel:[phone] OFFICE/OUTPA TIENT VISIT EST [facility], [address], [place], [address], [place] tel:[phone] [facility] S/P arthroscopy of left shoulder 0 Casandra Fernandez. [address], [place], [place], [address]. tel:[phone] OFFICE/OUTPA TIENT VISIT EST [facility], [address], [place], [address], [place] tel:[phone] [facility] S/P arthroscopy of left shoulder 0 Casandra Fernandez. [address], [place], [place], [address]. tel:[phone] [facility], [address], [place], [address], [place] tel:[phone] [facility] S/P arthroscopy of left shoulder 0 Casandra Fernandez. [address], [place], [place], [address]. tel:[phone] OFFICE/OUTPA TIENT VISIT EST [facility], [address], [place], [address], [place] tel:[phone] [facility] S/P arthroscopy of left shoulder Jan-2 0 Casandra Fernandez. [address], [place], [place], [address]. tel:[phone] [facility], [address], [place], [address], [place] tel:[phone] [facility] No Information Jan- 0 Casandra Fernandez. [address], [place], [place], [address]. tel:[phone] [facility], [address], [place], [address], [place] tel:[phone] [facility] S/P arthroscopy of left shoulder 0 Casandra Fernandez. [address], [place], [place], [address]. tel:[phone] OFFICE/OUTPA TIENT VISIT EST [facility], [address], [place], [address], [place] tel:[phone] [facility] S/P arthroscopy of left shoulder 0 Casandra Fernandez. [address], [place], [place], [address]. tel:[phone] [facility], [address], [place], [address], [place] tel:[phone] [facility] AC joint arthropathyS/P arthroscopy of left shoulder 0 Franky Robert. [address], [place], [place], [address]. tel:[phone] Referring Provider: Chris Hernandez, [address], [place], [address] . tel:[phone] [facility], [address], [address], [place] tel:[phone] [facility] Superior glenoid labrum lesion of left shoulder, init encntr 0 Denise Kearns. [address] [facility], [place], [place], [address]. tel:[phone] OFFICE/OUTPA TIENT VISIT EST [facility], [address], [address], [place] tel:[phone] [facility] AC joint arthropathySup erior glenoid labrum lesion of left shoulder, initial encounterBursi tis of right shoulder - 0 Denise Kearns. [address] [place], [place], [address]. tel:[phone] [facility], [address], [address], [place] tel:[phone] [facility] Pain in left shoulderPain in right shoulder Aug-2 3 0 No Information Referring Provider: Som Walker, [address] [address], [place], [address] . tel:[phone] OFFICE/OUTPA TIENT VISIT NEW [facility], [address], [address], [place] tel:[phone] [facility] Pain in left shoulderPain in right shoulder Aug- 0 Denise Kearns. [address] [place], [place], [address]. tel:[phone] Family History Family Member Type Diagnosis Age At Onset Father Problem Cancer, unknown Payers Payer name Insurance type Covered republican ID Authoriza tion(s) No Information Social History [...]
--- OUTSIDE RECORDS SUMMARY | 2024-09-25 12:44 | XMS_ITS | Continuity of Care Document ---
Author Organization [employer] Address [address] [place] [address] Phone Care Team Providers Care Athletic Instructor Name Role Phone Lucio Martin MD Unavailable [...] Thin 26 gauge take 1 each by [facility]non-drug; combo) route every day 1 each - Active Accu-Chek Missy Plus test strips take by [facility]Non-Drug; Combo Route) route once test once a day Not Available - Active Advance Directives Directive Yes / No Effective Date File Name No Information Encounters Encounter Description Practice Location Reason(s) For Visit Diagnoses Date Provider Providers Copied on Encounter [facility], [address], [place], [place], [address] , [place] tel: [phone] [facility] No Information Mario Valdes. [address], [address], [place], [place], [address], [place]. [phone] [facility], [address], [place], [place], [address] , [place] tel: [phone] [facility] No Information Prashanth Essence Castro. [address], [address], [place], [place], [address]. tel: [phone] [facility], [address], [place], [place], [address] , tel: [phone] [facility] Type 2 diabetes mellitus without complicationsUns pecified essential hypertension Mushtaq Amato. [address] [place] [address], [address], [place], [place], [address], [place]. tel: [phone] Referring Provider: Gloria Lowry, [address] [place] [address] [address], [place], [address] . tel:[phone] [facility], [address], [place], [place], [address] , [place] tel: [phone] [facility] Unspecified essential hypertension 7 Prashanth Essence Tapiaan. [address] [place] [address], [facility] [address], [place], [place], [address]. tel: [phone] Referring Provider: Gloria Lowry, [address] [place] [address] [address], [place], [address] . tel:[phone] [facility], [address], [place], [place], [address] , tel: [phone] [facility] No Information 7 Prashanth Essence Tapiaan. [address] [place] [address], [facility] [address], [place], [place], [address]. tel:[phone] [facility], [address], [place], [place], [address] , [place] tel: [phone] [facility] Cubital tunnel syndrome of both upper extremitiesUnspe cified essential hypertension 6 Ernie Johnson. [address], [address], [place], [place], [address], [place]. tel:[phone] Referring Provider: Gloria Lowry, [address], [place], [address] . tel:[phone] [facility] [employer] [facility], [address], [place], [place], [address] , [place] tel: [phone] [facility] Essential (primary) hypertensionType 2 diabetes mellitus without complicationsSar coidosis, unspecifiedEleva david blood proteinSeasonal allergic rhinitis, unspecified allergic rhinitis trigger 6 Ernie Johnson. [address], [address], [place], [place], [address], [place]. tel:[phone] Referring Provider: Gloria Lowry, [address], [place], [address] . tel:[phone] [facility], [address], [place], [place], [address] , [place] tel: [phone] [facility] Testosterone (chief complaint) Urinary frequencyMale erectile dysfunction, unspecifiedHypog onadism in male 6 Eric Newman. [address], [facility] [address], [place], [address], [place]. tel:[phone] Referring Provider: Gloria Lowry, [address], [place], [address] . tel:[phone] [facility], [address], [place], [place], [address] , [place] tel: [phone] [facility] Male erectile dysfunction, unspecified 6 Syed Rivas. [address], [facility] [address], [place], [place], [address]. tel:[phone] [facility], [address], [place], [place], [address] , [place] tel: [phone] [facility] Hypogonadism in male Prashanth Castro. [address], [facility] [address], [place], [place], [address]. tel:[phone] [facility], [address], [place], [place], [address] , [place] tel: [phone] [facility] Encntr for general adult medical exam w/o abnormal findingsEssentia l (primary) hypertensionType 2 diabetes mellitus without complicationsSar coidosis, unspecifiedAller gic rhinitis due to pollenMale erectile dysfunction, unspecifiedEncou nter for immunization 5 Ernie Johnson. [address], [address], [place], [place], [address], [place]. tel:[phone] Referring Provider: Gloria Lowry, [address] [place] [address] [address], [place], [address] . tel:[phone] [facility], [address], [place], [place], [address] , [place] tel: [phone] [facility] No Information Prashanth Castro. [address] [place] [address], [facility] [address], [place], [place], [address]. tel:[phone] [facility], [address], [place], [place], [address] , [place] tel: [phone] [facility] SarcoidosisUnspe cified essential hypertensionDiab etes (high blood sugar disease) with complications, blood sugar not under controlOther and unspecified angina pectorisCostocho ndritis, acute Prashanth Castro. [address] [place] [address], [facility] [address], [place], [place], [address]. [phone] Referring Provider: Gloria Lowry, [address] [place] [address], [place], [address] . tel:[phone] [facility], [address], [place], [place], [address] , tel: [phone] [facility] Diabetes Mellitus Type 2, UncomplicatedAci d reflux 4 Brie Perdue. [address], [facility] [address], [place], [place], [address], [place]. tel:[phone] Referring Provider: Gloria Lowry, [address] [facility] [address], [place], [address] . tel:[phone] [facility], [address], [place], [place], [address] , [place] tel: [phone] [facility] preventive exam (chief complaint)chr onic conditions (chief complaint)CP (chief complaint) Routine general medical examination at a [facility]TNAllergic rhinitis due to pollenSarcoidosi sDiabetes Mellitus Type 2, UncomplicatedRed undant prepuce and phimosisErectile DysfunctionChest TightnessNEED FOR PROPHYLACTIC VACCINATION WITH COMBINED DIPHTHERIA-TETAN US-PERTUSSIS (DTP) (DTAP) VACCINERoutine Medical Exam 3 Ernie Johnson. [address], [facility] [address], [place], [place], [address], [place]. [phone] Referring Provider: Gloria Lowry, [address] [place] [address] [address], [place], [address] . tel:[phone] [facility], [address], [place], [place], [address] , tel:[phone] [facility] diabetes (follow up) (chief complaint) Redundant prepuce and phimosisSarcoido sisPersonal history of noncompliance with medical treatment, presenting hazards to healthAllergic rhinitis due to pollenRoutine general medical examination at a health care facilityLoss of weightSarcoidosi sPersonal history of noncompliance with medical treatment, presenting hazards to healthRedundant prepuce and phimosisImpotenc e of organic origin 1 Prashanth Castro. [address], [facility] [address], [place], [place], [address]. tel:[phone] Referring Provider: Gloria Lowry, [address], [address] . tel:[phone] Family History Family Member Type Diagnosis Age [...] Record Payers Payer name Insurance type Covered constitution party ID Authoriza tion(s) [employer] INACTIVE OUT OF STATE [id number] [employer] INACTIVE OUT OF STATE [id number] Social History Type Description Quantity Date Captured [...]
--- NOTE | 2024-09-25 13:41 | ED.GENADULT ---
HPI - General Adult General Chief complaint: Dental/Oral Stated complaint: left jaw problems Time Seen by Provider: 09/25/24 12:34 History of Present Illness HPI narrative: 59-year-old male presenting to the emergency department for evaluation for dental pain. Last Friday patient presented to his dentist for dental pain and this Friday patient had his tooth extracted. Patient states he was having persistent pain in that tooth even during the dental extraction. Patient has not been on eye antibiotics. Patient presents to the emergency department today complaining left lower jaw pain at the site of the dental extraction. Patient has been taking Tylenol and ibuprofen for limited pain control. Patient does have allergy to lisinopril but no antibiotic allergies. Related Data Allergies Allergy/AdvReac Type Severity Reaction Status Date / Time lisinopril Allergy Intermediate Cough Verified 09/25/24 13:49 Review of Systems Review of Systems: All systems reviewed & are unremarkable except as noted in HPI and below Exam Narrative: APPEARANCE: Well appearing, no pain, no distress, well-nourished. HEAD: normocephalic, atraumatic. EYES: PERRLA/EOMI, conjunctivae clear. NOSE: Normal no drainage EARS:TMS clear with good light reflex. THROAT: Pharynx clear, no exudate. Mouth: No trismus, no abscess amenable to drainage, tenderness at extraction site, no dry socket NECK: Supple. No adenopathy, no masses. RESPIRATORY: Airway patent, respirations nonlabored. Clear to auscultation bilaterally, no rales, rhonchi, wheezing. CARDIOVASCULAR: Regular rate and rhythm without murmurs rubs or gallops. ABDOMINAL: Soft, nontender, nondistended, normal bowel sounds MUSCULOSKELETAL: Moves all extremities. Strength/ROM intact, No edema, No calf tenderness. NEURO: Alert. Cranial nerves II through XII intact. SKIN: Warm, dry. Normal Color Course Vital Signs Vital signs: Vital Signs Temperature 98.2 F 09/25/24 12:32 Pulse Rate 90 09/25/24 12:32 Respiratory Rate 16 09/25/24 12:32 Blood Pressure 142/100 H 09/25/24 12:32 Pulse Oximetry 100 09/25/24 12:32 Temperature 98.2 F 09/25/24 12:32 Pulse Rate 90 09/25/24 12:32 Respiratory Rate 16 09/25/24 12:32 Blood Pressure 142/100 H 09/25/24 12:32 Pulse Oximetry 100 09/25/24 12:32 Medical Decision Making MDM Narrative Medical decision making narrative: 59-year-old male presents to the emergency department for evaluation for left lower jaw pain and dental extraction. Patient has no trismus no abscess amenable to drainage. Patient was provided IM Toradol in the emergency department for pain control and patient was started on p.o. Augmentin. Patient will be discharged home with additional medications for pain control in addition to antibiotics. Patient will have close follow-up with his dentist. All questions concerns were addressed. Differential Diagnosis Differential Diagnosis: Trismus, abscess, osteomyelitis, dry socket Vital Signs Vital Signs: Vital Signs Temperature 98.2 F 09/25/24 12:32 Pulse Rate 90 09/25/24 12:32 Respiratory Rate 16 09/25/24 12:32 Blood Pressure 142/100 H 09/25/24 12:32 Pulse Oximetry 100 09/25/24 12:32 Temperature 98.2 F 09/25/24 12:32 Pulse Rate 90 09/25/24 12:32 Respiratory Rate 16 09/25/24 12:32 Blood Pressure 142/100 H 09/25/24 12:32 Pulse Oximetry 100 09/25/24 12:32 Discharge Plan Discharge Clinical Impression: Pain, dental Patient Disposition: Home Condition: Stable Instructions: Antibiotic Form, Toothache (ED) Additional Instructions: Ibuprofen for pain control. Antibiotics as directed until completed. [place] as needed for additional pain control. Continue to have close follow-up with your dentist. If you have any worsening symptoms then please call or return to the emergency department. Patient Language: Wolof Prescriptions: New hydrocodone-acetaminophen 5-325 mg tablet 1 tablet PO Q12H PRN (Reason: pain) Qty: 14 0RF amoxicillin-pot clavulanate 875-125 mg tablet 1 tablet PO Q12H 7 Days Qty: 14 0RF Follow-up/Referrals: PHYSICIAN NOT ON STAFF,NONSTAFF [Primary Care Provider] -
[2024-09-25] MEDS: AMOXICILLIN/CLAVULANATE K 875-125 MG TAB 1 TABLET PO (13:49)
[2024-09-25] MEDS: KETOROLAC (*BKC) 60 MG/2 ML VIAL IM (13:51)
== END 2024-09-25 14:05 | disposition home or self-care (01) ==
PROVIDERS: Emergency Provider Emergency Medicine
DX: K08.89 Other specified disorders of teeth and supporting structures (principal)
CPT/HCPCS: 96372; 99283; A9270; J1885

== ENCOUNTER 2024-10-31 11:45 | Emergency (ER) | payer OTHER, SELFPAY ==
--- NOTE | ~2024-10-31 | XR_ITS ---
Clinical Indication: Chest pain PA and lateral views of the chest: Comparison: None Findings: The lungs are clear, without evidence of focal consolidation or pleural effusion. Cardiome diastinal silhouette is within normal limits. Bones and soft tissues are unremarkable. Impression: Normal chest. Reviewed, dictated and finalized at location . Impression: Normal chest.
--- NOTE | 2024-10-31 11:47 | ECG_ITS ---
Test Date: 2024-10-31 11:51:40 Measurements Intervals [place] Rate: 84 P: 60 [place]: 249 QRS: 4 QRSD: 100 T: 20 QT: 363 QTc: 431 Interpretive Statements SINUS RHYTHM WITH FIRST DEGREE AV BLOCK BORDERLINE ECG No previous ECG available for comparison Electronically Signed On 10-31-2024 13:52:09 CDT by Randy Merida D.O.
[2024-10-31 12:04] LABS: Basophils Percent Auto 0.9 % (0.2-1.2); Eosinophils Absolute Auto 0.4 K/mm3 (0-0.3); Eosinophils Percent Auto 9.6 % (0-4.4); Hemoglobin 12.9 g/dL (14.0-18.0); Lymphocytes Absolute Auto 2.15 K/mm3 (0.9-3.2); Mean Corpuscular HGB Conc 33.9 g/dl (32-36); Mean Corpuscular Volume 82.4 fl (80-100); Mean Platelet Volume 9.5 fl (7.4-10.4); Monocytes Absolute Auto 0.4 K/mm3 (0.1-0.6); Neutrophils Absolute Auto 1.3 K/mm3 (1.3-6.7); Neutrophils Percent Auto 30.5 % (45.5-73.1); Platelet Count Result 170 k/mm3 (150-375); Red Blood Count 4.61 M/mm3 (4.6-6.20); Red Cell Distribution Width 12.3 % (11.5-14.5); White Blood Count 4.4 K/mm3 (4.5-10.0)
[2024-10-31 12:16] LABS: Alanine Aminotransferase 49 U/L (6-50); Albumin Level 4.7 g/dL (3.5-5.1); Alkaline Phosphatase 48 U/L (38-126); Anion Gap 13 mmol/L (4-12); Aspartate Amino Transferase 44 U/L (17-59); Bilirubin,Total 0.8 mg/dL (0.2-1.3); Blood Urea Nitrogen 16 mg/dL (9-20); Calcium 9.7 mg/dL (8.4-10.2); Carbon Dioxide 24 mmol/L (22-30); Chloride 100 mmol/L (98-107); Estimated Glomerular Filt Rate > 60; Glucose 234 mg/dL (65-110); Lipase 153 U/L (23-300); Potassium 3.9 mmol/L (3.4-5.0); Sodium 137 mmol/L (137-145); Total Protein 8.6 g/dL (6.3-8.2)
[2024-10-31 12:17] LABS: INR 1.1; Prothrombin Time 13.7 Seconds (11.1-14.7)
[2024-10-31 12:19] VITALS: PULSE 83
[2024-10-31 12:19] LABS: Partial Thromboplastin Time 25.4 Seconds (22.3-36.8)
[2024-10-31 12:24] VITALS: BP 140/86; PULSE 81; RESP 18; O2SAT 98
[2024-10-31 12:25] VITALS: O2SAT 99
[2024-10-31 12:29] LABS: Troponin I < 0.012 ng/mL (0.000-0.034)
[2024-10-31 12:33] LABS: D Dimer 0.48 ug/mL (<0.48)
[2024-10-31] MEDS: ASPIRIN 81 MG CHEWABLE TABLET 324 MG PO (12:44)
[2024-10-31 12:45] LABS: NT Pro B Type Natriuretic Pept < 20 pg/mL (19.9-100)
--- NOTE | 2024-10-31 14:38 | ECG_ITS ---
Test Date: 2024-10-31 14:46:34 Measurements Intervals [place] Rate: 73 P: 56 [place]: 272 QRS: 2 QRSD: 102 T: 9 QT: 388 QTc: 430 Interpretive Statements SINUS RHYTHM WITH FIRST DEGREE AV BLOCK BASELINE ARTIFACT- I, II, III, AVR, AVL, AVF, V1-V6 BORDERLINE ECG Compared to ECG 10/31/2024 11:51:40 No significant changes Electronically Signed On 10-31-2024 15:27:15 CDT by Randy Merida D.O.
--- NOTE | 2024-10-31 14:54 | ED_ITS ---
HPI - General Adult General Chief complaint: Chest Pain Stated complaint: chest pain, Time Seen by Provider: 10/31/24 11:49 History of Present Illness HPI narrative: This is a 39-year-old male presenting with chest pain. At 8:00 a.m. while he was getting ready for work he developed a heaviness in the center of his chest is nonradiating, moderate intensity and then decrease to mild intensity and is barely there the moment. He has had this 2-3 times over the last year but has never been this intense. No exacerbating alleviating factors. He denies vomiting diaphoresis or exertional component no fevers chills shortness of breath. He does have some mild pain on deep respiration. Related Data Allergies Allergy/AdvReac Type Severity Reaction Status Date / Time lisinopril Allergy Intermediate Cough Verified 10/31/24 12:24 Exam 2 Narrative: APPEARANCE: No apparent distress. Head: atraumatic. EYES: EOMI, NOSE: Atraumatic NECK: Trachea midline RESPIRATORY: No increased rate of breathing clear auscultation CARDIOVASCULAR: RRR, no peripheral edema ABDOMINAL: Non-distended soft nontender MUSCULOSKELETAl: No obvious deformities NEURO: Alert. Moving 4/4 extremities SKIN:: Warm, dry. Normal color PSYCHIATRIC: Normal affect Course Vital Signs Vital signs: Vital Signs Pulse Rate 83 10/31/24 12:19 Pulse Rate 81 10/31/24 12:24 Respiratory Rate 18 10/31/24 12:24 Blood Pressure 140/86 10/31/24 12:24 Pulse Oximetry 99 10/31/24 12:25 Oxygen Delivery Room Air 10/31/24 12:25 Medical Decision Making [facility] Narrative Medical decision making narrative: -Course: Patient's EKGs and labs are reviewed without significant high risk changes. Cardiac risk factors reviewed. Heart score is <4 and it iss reasonable for further risk stratification to be performed as outpatient. Pain was not sudden or maximal onset not tearing or ripping quality. No other signs or symptoms suggest aortic dissection. A low risk Wells criteria is noted. PE is felt to be unlikely. No pneumonia seen on evaluation today. Patient is felt to be reasonable candidate for continued evaluation as an outpatient. -DDX includes but is not limited to: ACS, pleurisy pneumonia, pneumothorax, PE, aortic dissection, despite failure Independent EKG interpretation: Rhythm [sinus], Rate [84], [place] -[normal], IA -[prolonged l], QRS [narrow], QTC [normal], T waves -[negative for concerning inversions], ST Segments - [Negative for concerning elevations] Final interpretations: Normal sinus rhythm with prolonged IA interval Vital Signs Vital Signs: Vital Signs Pulse Rate 83 10/31/24 12:19 Pulse Rate 81 10/31/24 12:24 Respiratory Rate 18 10/31/24 12:24 Blood Pressure 140/86 10/31/24 12:24 Pulse Oximetry 99 10/31/24 12:25 Oxygen Delivery Room Air 10/31/24 12:25 Lab Data 10/31/24 11:58 10/31/24 11:58 Labs: Lab Results 10/31/24 10/31/24 10/31/24 Range/Units 11:58 11:58 14:35 WBC 4.4 L (4.5-10.0) K/mm3 RBC 4.61 (4.6-6.20) M/mm3 Hgb 12.9 L (14.0-18.0) g/dL Hct 38.0 L (42.0-52.0) % MCV 82.4 (80-100) fl MCH 28.0 (26-34) pg MCHC 33.9 (32-36) g/dl RDW 12.3 (11.5-14.5) % Plt Count 170 (150-375) k/mm3 MPV 9.5 (7.4-10.4) fl Immature Gran % (Auto) 0.0 (0-0.5) % Neut % (Auto) 30.5 L (45.5-73.1) % Lymph % (Auto) 49.0 H (18.3-44.2) % [place] % (Auto) 10.0 H (2.6-8.5) % Eos % (Auto) 9.6 H (0-4.4) % Baso % (Auto) 0.9 (0.2-1.2) % Lymph # (Auto) 2.15 (0.9-3.2) K/mm3 [place] # (Auto) 0.4 (0.1-0.6) K/mm3 Eos # (Auto) 0.4 H (0-0.3) K/mm3 Baso # (Auto) 0.0 (0.0-0.1) K/mm3 Abs Immat Gran (auto) 0.00 (0.00-0.031) K/mm3 Absolute Neuts (auto) 1.3 (1.3-6.7) K/mm3 Absolute Nucleated RBC 0.000 (0.0-0.012) K/mm3 Nucleated RBC % 0.0 (0.0-0.2) % PT 13.7 (11.1-14.7) Seconds INR 1.1 APTT 25.4 (22.3-36.8) Seconds D-Dimer 0.48 (<0.48) ug/mL Sodium 137 (137-145) mmol/L Potassium 3.9 (3.4-5.0) mmol/L Chloride 100 (98-107) mmol/L Carbon Dioxide 24 (22-30) mmol/L Anion Gap 13 H (4-12) mmol/L BUN 16 (9-20) mg/dL Creatinine 0.82 (0.7-1.3) mg/dL Estim Creat Clear Calc Not Reportable Estimated GFR > 60 (59 - ) Glucose 234 H (65-110) mg/dL Calcium 9.7 (8.4-10.2) mg/dL Total Bilirubin 0.8 (0.2-1.3) mg/dL AST 44 (17-59) U/L ALT 49 (6-50) U/L Alkaline Phosphatase 48 (38-126) U/L Troponin I < 0.012 Pending (0.000-0.034) ng/mL NT-Pro-B Natriuret Pep < 20 Cancelled (19.9-100) pg/mL Total Protein 8.6 H (6.3-8.2) g/dL Albumin 4.7 (3.5-5.1) g/dL Lipase 153 (23-300) U/L Discharge Plan Discharge Clinical Impression: Chest pain Patient Disposition: Home Condition: Stable Instructions: Antibiotic Form, Chest Pain (ED) Additional Instructions: You were seen in the emergency department for chest pain. Your workup here including chest x-ray, EKGs troponins, and your basic labs were all within normal limits. Please follow-up with the maori liaison adviser listed below for further management. If you develop any new symptoms such as fevers, chest pain, difficulty breathing please return to ED for re-evaluation. Patient Language: Slovenian Prescriptions: No Action hydrocodone-acetaminophen 5-325 mg tablet 1 tablet PO Q12H PRN (Reason: pain) Qty: 14 0RF amoxicillin-pot clavulanate 875-125 mg tablet 1 tablet PO Q12H 7 Days Qty: 14 0RF Follow-up/Referrals: Randy Merida DO [Physician] - 1 Week (Chest pain) PHYSICIAN NOT ON STAFF,NONSTAFF [Primary Care Provider] -
--- NOTE | 2024-10-31 14:57 | ECG_ITS ---
Test Date: 2024-10-31 14:59:37 Measurements Intervals [place] Rate: 72 P: 55 [place]: 306 QRS: 8 QRSD: 101 T: 6 QT: 400 QTc: 439 Interpretive Statements SINUS RHYTHM WITH FIRST DEGREE AV BLOCK BORDERLINE ECG Compared to ECG 10/31/2024 14:46:34 No significant changes Electronically Signed On 10-31-2024 15:27:37 CDT by Randy Merida D.O.
[2024-10-31 15:01] LABS: Troponin I < 0.012 ng/mL (0.000-0.034)
[2024-10-31 15:06] VITALS: BP 126/90; PULSE 78; RESP 15; O2SAT 98
[2024-10-31 15:39] VITALS: BP 126/90; PULSE 82; RESP 17; O2SAT 95
== END 2024-10-31 15:40 | disposition home or self-care (01) ==
PROVIDERS: Student in an Organized Health Care Education/Training Program; Emergency Provider Emergency Medicine
DX: R07.9 Chest pain, unspecified (principal); I44.0 Atrioventricular block, first degree
CPT/HCPCS: 36415; 71046; 80053; 83690; 83880; 84484; 85025; 85380; 85610; 85730; 93005; 99284; A9270